=== PATIENT | female | born 1935 | race Caucasian/White ===

== ENCOUNTER 2017-04-10 16:34 | Observation (INO) | payer MEDICARE, BC ==
[2017-04-10] MEDS ORDERED: Ondansetron 4 MG/2 ML SDV IV PRN (17:39)
[2017-04-10] MEDS ORDERED: Promethazine 12.5 MG in Sodium Chloride 0.9% 50 ML IV PRN (17:39)
[2017-04-10] MEDS ORDERED: Bisacodyl 5 MG Tab PO PRN (17:39)
[2017-04-10] MEDS ORDERED: HYDROmorphone 0.5 MG/0.5 ML Syringe IVPUSH PRN (17:39)
[2017-04-10] MEDS ORDERED: Docusate Sodium 100 MG Cap PO PRN (17:39)
[2017-04-10] MEDS ORDERED: LORazepam 2 MG/ML MDV IV PRN (17:39)
[2017-04-10] MEDS ORDERED: Albuterol 0.083% 2.5 MG/3 ML Neb Soln NEB PRN (17:39)
[2017-04-10] MEDS ORDERED: Polyethylene Glycol 3350 Powder 17 GM Packet PO PRN (17:39)
[2017-04-10] MEDS ORDERED: Acetaminophen/HYDROcodone 325-5 MG Tab PO PRN (17:39)
[2017-04-10] MEDS ORDERED: Temazepam 15 MG Cap PO PRN (17:39)
[2017-04-10] MEDS ORDERED: Acetaminophen 325 MG Tab PO PRN (17:39)
[2017-04-10] MEDS ORDERED: hydrALAZINE 20 MG/ML SDV IVPUSH PRN (17:43)
[2017-04-10] MEDS ORDERED: Metoprolol Tartrate 5 MG/5 ML SDV IVPUSH PRN (17:43)
--- NOTE | 2017-04-10 18:32 | PCM.HP ---
H&P History of Present Illness - General Date of Service: 04/10/17 Admit Problem/Dx: Admission Diagnosis/Problem Admission Diagnosis/Problem Anemia Source of Information: Patient, Other History Limitations: Reports: No Limitations - History of Present Illness Initial Comments - Free Text/Narative: This is a healthy 81-year-old elderly white female with no known past medical history who comes in from [facility] for further evaluation of anemia associated with black tarry stool. Patient reports no associated symptoms. She has no GI complaints. No shortness of breath or chest pain. She denies any recent surgery or trauma. Patient was recently diagnosed with bilateral PE. This was felt to be provoked in nature after she took a long trip to [place], [place] to visit her children. Patient was alone on her own when she took the 2-day trip. When she got back in town, she seemed to have been okay but by the following night she started having back pain. On the 24 of March, she went and saw her primary care doctor and at that time she was diagnosed with bilateral PE on CTA. On that same day, patient was put on xarelto for treatment of her lung clot. Patient tolerated the medicine up until 10 days ago, when she started having black tarry stools. Today she went and got seen at the clinic and she was found to have a low hemoglobin level. Her initial workup shows a CBC significant for a Hgb level of 6.8, Hct of 21.51, and MCV of 106. No additional diagnostic data was relayed to me and no other medical documentations forwarded to us from the clinic. Patient is coming in as a direct admit. She will be admitted under observations for further evaluation of her anemia. She is DNR/DNI. - Related Data Allergies/Adverse Reactions: Allergies Allergy/AdvReac Type Severity Reaction Status Date / Time No Known Allergies Allergy Verified 04/10/17 18:48 Past Medical History HEENT History: Reports: Impaired Vision Other HEENT History: wears glasses Cardiovascular History: Reports: Heart Murmur Respiratory History: Reports: Asthma Endocrine/Metabolic History: Reports: None Hematologic History: Reports: Anemia, Anticoagulation Therapy Other Hematologic History: Currently hg 6.8 - Infectious Disease History Infectious Disease History: Reports: Chicken Pox, Measles, Mumps - Past Surgical History HEENT Surgical History: Reports: Adenoidectomy, Cataract Surgery, Tonsillectomy Other HEENT Surgeries/Procedures: cataract surgery bilat, oorphrectomy Cardiovascular Surgical History: Reports: None Respiratory Surgical History: Reports: None GI Surgical History: Reports: Appendectomy, Hernia Repair/Other Other GI Surgeries/Procedures: Current GI Bleed; Umbilical hernia repair Female Surgical History: Reports: Oophorectomy Other Female Surgeries/Procedures: R oophorectomy Dermatological Surgical History: Reports: None Social & Family History - Family History Cardiac: Reports: Hypertension Respiratory: Reports: Asthma, COPD - Tobacco Use Smoking Status *Q: Former Smoker Years of Tobacco use: 30 Used Tobacco, but Quit: Yes Month Tobacco Last Used: 10/1989 Second Hand Smoke Exposure: No - Caffeine Use Caffeine Use: Reports: Coffee Caffeine Use Comment: 3-5 cup of coffee/day - Recreational Drug Use Recreational Drug Use: No H&P Review of Systems - Review of Systems: Review Of Systems: See Below General: Denies: Fever, Chills, Malaise, Weakness, Fatigue, Decreased Appetite, Weight Loss HEENT: Reports: No Symptoms Pulmonary: Denies: Shortness of Breath Cardiovascular: Denies: Chest Pain, Palpitations, Lightheadedness, Syncope Gastrointestinal: Reports: Black Stool, Diarrhea, Flatus. Denies: Abdominal Pain, Anorexia, Bloody Stool, Constipation, Decreased Appetite, Difficulty Swallowing, Distension, Hematemesis, Hematochezia, Mucous in Stool, Nausea, Stool Incontinence, Vomiting, Other Genitourinary: Reports: No Symptoms Musculoskeletal: Reports: No Symptoms Skin: Denies: Cyanosis, Jaundice, Pruritis, Rash, Erythema, Wound Psychiatric: Denies: Depression, Anxiety, Hallucinations, Suicidal Ideation, Homicidal Ideation Neurological: Denies: Confusion, Dizziness, Syncope, Difficulty Walking, Weakness, Gait Disturbance Hematologic/Lymphatic: Denies: Anemia, Easy Bleeding, Easy Bruising Immunologic: Reports: No Symptoms Exam - Exam Exam: See Below - Vital Signs Vital Signs: Last Vital Signs Temp 36.9 C 04/10/17 16:38 Pulse 70 04/10/17 16:38 Resp 16 04/10/17 16:38 BP 112/87 04/10/17 16:38 Pulse Ox 100 04/10/17 16:38 Weight: 66.451 kg - Exam General: Alert, Oriented, Cooperative. No: Mild Distress HEENT: Conjunctiva Clear, EACs Clear, EOMI, Hearing Intact, Mucosa Moist & [place] , Nares Patent, Normal Nasal Septum, Posterior Pharynx Clear, Pupils Reactive, TMs Clear Neck: Supple, Trachea Midline, Full Range of Motion. No: JVD Lungs: Clear to Auscultation, Normal Respiratory Effort Cardiovascular: Regular Rate, Regular Rhythm Abdomen: Normal Bowel Sounds, Soft. No: Peritoneal Signs, Distention, Guarding , Rigidity, Tenderness (Female) Exam: Deferred Rectal (Female) Exam: Deferred Back Exam: Normal Inspection, Decreased Range of Motion Extremities: Normal Inspection, Normal Pulses Peripheral Pulses: 2+: Posterior Tibial (L), Posterior Tibial (R), Dorsalis Pedis (L), Dorsalis Pedis (R) Skin: Warm, Dry, Intact Neuro Extensive - Mental Status: Oriented x3, Normal Cognition, Memory Intact Neuro Extensive - Motor, Sensory, Reflexes: CN II-XII Intact, Normal Gait Psychiatric: Alert, Normal Affect, Normal Mood - Patient Data Result Diagrams: 04/11/17 05:34 04/11/17 05:34 *Q Meaningful Use (ADM) - VTE *Q VTE Criteria *Q: - Stroke *Q Stroke Criteria *Q: - AMI *Q AMI Criteria *Q: Problem List Initiated/Reviewed/Updated: Yes Orders Last 24hrs: Active Orders 24 hr Category Date Time Status Patient Status [ADT] Routine ADT 04/10/17 17:39 Active Antiembolic Devices [RC] 10,21 Care 04/10/17 17:42 Active Height and Weight [RC] DAILY Care 04/10/17 17:39 Active Intake and Output [RC] 04,16 Care 04/10/17 17:41 Active Oxygen Therapy [RC] PRN Care 04/10/17 17:39 Active RT Aerosol Therapy [RC] ASDIRECTED Care 04/10/17 17:42 Active Up ad Karina [RC] ASDIRECTED Care 04/10/17 17:39 Active VTE/DVT Education [RC] PER UNIT ROUTINE Care 04/10/17 17:39 Active Vital Signs [RC] Q4H Care 04/10/17 17:39 Active Consult to Case Management [CONS] Routine Cons 04/10/17 17:43 Active Consult to Data Processor [CONS] Routine Cons 04/10/17 17:43 Active Regular Diet [DIET] Diet 04/10/17 Dinner Active BASIC METABOLIC PANEL,BMP [CHEM] AM Lab 04/11/17 05:11 Ordered BASIC METABOLIC PANEL,BMP [CHEM] AM Lab 04/12/17 05:11 Ordered BASIC METABOLIC PANEL,BMP [CHEM] AM Lab 04/13/17 05:11 Ordered CBC WITH AUTO DIFF [HEME] AM Lab 04/11/17 05:11 Ordered CBC WITH AUTO DIFF [HEME] AM Lab 04/12/17 05:11 Ordered CBC WITH AUTO DIFF [HEME] AM Lab 04/13/17 05:11 Ordered MAGNESIUM [CHEM] AM Lab 04/11/17 05:11 Ordered MAGNESIUM [CHEM] AM Lab 04/12/17 05:11 Ordered MAGNESIUM [CHEM] AM Lab 04/13/17 05:11 Ordered Acetaminophen [Tylenol] Med 04/10/17 17:39 Pending 650 mg PO Q4H PRN Acetaminophen/HYDROcodone [[place] 325-5 MG] Med 04/10/17 17:39 Ordered 1 tab PO Q4H PRN Albuterol [Proventil Neb Soln] Med 04/10/17 17:39 Ordered 2.5 mg NEB Q2H PRN Bisacodyl [Dulcolax] Med 04/10/17 17:39 Ordered 5 mg PO DAILY PRN Docusate Sodium [Colace] Med 04/10/17 17:39 Ordered 100 mg PO BID PRN Docusate Sodium/Sennosides [Senna Plus] Med 04/10/17 17:39 Ordered 1 tab PO BID PRN HYDROmorphone [Dilaudid] Med 04/10/17 17:39 Ordered 0.25 mg IVPUSH Q2H PRN LORazepam [Ativan] Med 04/10/17 17:39 Ordered 0.25 mg IV Q6H PRN Magnesium Rep Pharmacy to Dose [Pharmacy to Dose - Med 04/10/17 17:45 Ordered Magnesium Replacement] 1 dose .XX ASDIRECTED Metoprolol Tartrate [Lopressor] Med 04/10/17 17:43 Ordered 5 mg IVPUSH Q4H PRN Ondansetron [Zofran] Med 04/10/17 17:39 Ordered 4 mg IV Q6H PRN Polyethylene Glycol 3350 [MiraLAX] Med 04/10/17 17:39 Ordered 17 gm PO DAILY PRN Potassium Rep Pharmacy to Dose [Pharmacy to Dose - Med 04/10/17 17:45 Ordered Potassium Replacement] 1 dose .XX ASDIRECTED Promethazine [Phenergan] 12.5 mg Med 04/10/17 17:39 Ordered Sodium Chloride 0.9% [Normal Saline] 50 ml IV Q6H Sodium Chloride 0.9% [Normal Saline] 1,000 ml Med 04/10/17 17:45 Ordered IV ASDIRECTED Temazepam [Restoril] Med 04/10/17 17:39 Ordered 7.5 mg PO BEDTIME PRN hydrALAZINE [Apresoline] Med 04/10/17 17:43 Ordered 20 mg IVPUSH Q4H PRN Sequential Compression Device [OM.PC] Per Unit Routine Oth 04/10/17 17:41 Ordered Resuscitation Status Routine Resus Stat 04/10/17 17:39 Ordered Medication Orders Acetaminophen (Tylenol) 650 mg PO Q4H PRN PRN Reason: Pain (Mild 1-3)/fever Hydrocodone Bitart/Acetaminophen ([place] 325-5 Mg) 1 tab PO Q4H PRN PRN Reason: Pain (moderate 4-6) Albuterol (Proventil Neb Soln) 2.5 mg NEB Q2H PRN PRN Reason: Shortness Of Breath/wheezing Bisacodyl (Dulcolax) 5 mg PO DAILY PRN PRN Reason: Constipation Docusate Sodium (Colace) 100 mg PO BID PRN PRN Reason: Constipation Hydralazine HCl (Apresoline) 20 mg IVPUSH Q4H PRN PRN Reason: Hypertension Hydromorphone HCl (Dilaudid) 0.25 mg IVPUSH Q2H PRN PRN Reason: Pain (severe 7-10) Promethazine HCl 12.5 mg/ (Sodium Chloride) 50.5 mls @ 100 mls/hr IV Q6H PRN PRN Reason: Nausea/Vomiting Sodium Chloride (Normal Saline) 1,000 mls @ 125 mls/hr IV ASDIRECTED MIKE Lorazepam (Ativan) 0.25 mg IV Q6H PRN PRN Reason: Anxiety Magnesium Sulfate (Pharmacy To Dose - Magnesium Replacement) 1 dose .XX ASDIRECTED MIKE Metoprolol Tartrate (Lopressor) 5 mg IVPUSH Q4H PRN PRN Reason: Tachycardia Ondansetron HCl (Zofran) 4 mg IV Q6H PRN PRN Reason: Nausea/Vomiting Polyethylene Glycol (Miralax) 17 gm PO DAILY PRN PRN Reason: Constipation Potassium Chloride (Pharmacy To Dose - Potassium Replacement) 1 dose .XX ASDIRECTED MIKE Senna/Docusate Sodium (Senna Plus) 1 tab PO BID PRN PRN Reason: Constipation Temazepam (Restoril) 7.5 mg PO BEDTIME PRN PRN Reason: Sleep Assessment/Plan Comment:: Assessment/Plan: Acute: Anemia - 2/2 slow GI bleed - Black Tarry Stools - Risk Factors: on Xarelto and +/- NSAIDs use (takes Tylenol and 2 Motrin ( 200 mg) PRN for occasional aches and pain but has not been taking much - No hx/o GI Malignancy/Diverticulosis/Diverticulitis/PUD/Gastritis/ Esophagitis - Has not had an EGD in the past - Last colonoscopy was 4 years with benign finding (performed by Dr. Leslie) - Will type and cross 2 units of PRBCs - Routine H/H GI Bleed - Black tarry stool after she was put on xarelto for Bilateral PE treatment - Hold NOAC for now - Pending blood transfusions - Hold off GS consult - PPIs for possible Upper GI bleed Recent Bilateral PE - Proved: after a prolonged travel to [place], [place] - She was put on xarelto on the of this month - SCDs for DVT prophylaxis - Patient is aware any blood thinners would be contraindicated at this time due to current GI bleed Chronic: HLD? Plan: Admit to OBS Routine AM Labs Regular Diet Hemoccult test if not already done Resume Home Meds if she is on any except for NSAIDs and Blood Thinners Verify maintenance home meds with her local pharmacy SW/CM for d/c planning Additional orders as above Code status: DNR/DNI
[2017-04-10] MEDS: Sodium Chloride 0.9% 1,000 ML IV SCH (19:18)
[2017-04-10] MEDS ORDERED: Multivitamins,Therapeutic Tab PO SCH (21:00)
[2017-04-10] MEDS ORDERED: Sodium Chloride 0.9% 250 ML IV SCH (22:15)
[2017-04-11] MEDS ORDERED: Pantoprazole 40 MG in Sodium Chloride 0.9% 100 ML IV ONE (07:59)
--- NOTE | 2017-04-11 08:02 | PCM.PN ---
- General Info Date of Service: 04/11/17 Admission Dx/Problem (Free Text): Admission Diagnosis/Problem Admission Diagnosis/Problem Anemia Subjective Update: Follow Up Functional Status: Reports: pain controlled, tolerating diet, ambulating, urinating. Denies: new symptoms - Review of Systems General: Denies: Fever, Weakness, Fatigue, Malaise, Chills HEENT: Reports: no symptoms Pulmonary: Denies: shortness of breath Cardiovascular: Denies: Chest Pain, Palpitations, Lightheadedness Gastrointestinal: Reports: Flatus, Other (pebble like dark stools ). Denies: Abdominal pain, Constipation, Decreased appetite, Diarrhea, Difficulty swallowing, Hematochezia, Nausea, Vomiting Genitourinary: Reports: no symptoms Musculoskeletal: Reports: no symptoms Neurological: Reports: No Symptoms Psychiatric: Denies: depression, anxiety, hallucinations Systems Review Comment:: No overnight or acute issues. She is doing relatively. No GI bleed reported. Her Hgb this is 8.6 after receiving 2 units yesterday. She has no new complaints. - Patient Data Vitals - most recent: Last Vital Signs Temp 36.4 C 04/11/17 04:58 Pulse 53 L 04/11/17 04:58 Resp 14 04/11/17 04:58 BP 112/52 L 04/11/17 04:58 Pulse Ox 98 04/11/17 04:58 Weight - most recent: 66.451 kg I&O - last 24 hours: Intake & Output 04/10/17 04/11/17 04/11/17 22:59 06:59 14:59 Intake Total 1640 Output Total 400 Balance 1240 Lab Results last 24 hrs: Laboratory Results - last 24 hr 04/10/17 04/11/17 04/11/17 Range/Units 19:50 05:34 05:34 WBC 4.33 (3.98-10.04) K/mm3 RBC 2.76 L (3.98-5.22) M/mm3 Hgb 8.6 L (11.2-15.7) gm/L Hct 26.9 L (34.1-44.9) % MCV 97.5 H (79.4-94.8) fl MCH 31.2 (25.6-32.2) pg MCHC 32.0 L (32.2-35.5) g/dl RDW Std Deviation 56.7 H (36.4-46.3) fL Plt Count 161 L (182-369) K/mm3 MPV 12.0 (9.4-12.3) fl Neut % (Auto) 41.3 (34.0-71.1) % Lymph % (Auto) 39.7 (19.3-51.7) % [place] % (Auto) 10.9 (4.7-12.5) % Eos % (Auto) 6.9 H (0.7-5.8) Baso % (Auto) 0.7 (0.1-1.2) % Neut # (Auto) 1.79 (1.56-6.13) K/mm3 Lymph # (Auto) 1.72 (1.18-3.74) K/mm3 [place] # (Auto) 0.47 H (0.24-0.36) K/mm3 Eos # (Auto) 0.30 (0.04-0.36) K/mm3 Baso # (Auto) 0.03 (0.01-0.08) K/mm3 Percent Retic 4.20 H (0.50-1.70) % Sodium 142 (136-145) mEq/L Potassium 3.8 (3.5-5.1) mEq/L Chloride 110 H (98-107) mEq/L Carbon Dioxide 24 (21-32) mEq/L Anion Gap 11.8 (5-15) BUN 18 (7-18) mg/dL Creatinine 0.7 (0.55-1.02) mg/dL Est Cr Clr Drug Dosing 47.56 mL/min Estimated GFR (MDRD) > 60 (>60) mL/min BUN/Creatinine Ratio 25.7 H (14-18) Glucose 86 (83-115) mg/dL Calcium 8.3 L (8.5-10.1) mg/dL Magnesium 1.9 (1.8-2.4) mg/dl Vitamin B12 (193-986) pg/ml Folate (8.6-58.9) ng/mL Blood Type A POSITIVE Gel Antibody Screen Negative Crossmatch See Detail 04/11/17 Range/Units 05:34 WBC (3.98-10.04) K/mm3 RBC (3.98-5.22) M/mm3 Hgb (11.2-15.7) gm/L Hct (34.1-44.9) % MCV (79.4-94.8) fl MCH (25.6-32.2) pg MCHC (32.2-35.5) g/dl RDW Std Deviation (36.4-46.3) fL Plt Count (182-369) K/mm3 MPV (9.4-12.3) fl Neut % (Auto) (34.0-71.1) % Lymph % (Auto) (19.3-51.7) % [place] % (Auto) (4.7-12.5) % Eos % (Auto) (0.7-5.8) Baso % (Auto) (0.1-1.2) % Neut # (Auto) (1.56-6.13) K/mm3 Lymph # (Auto) (1.18-3.74) K/mm3 [place] # (Auto) (0.24-0.36) K/mm3 Eos # (Auto) (0.04-0.36) K/mm3 Baso # (Auto) (0.01-0.08) K/mm3 Percent Retic (0.50-1.70) % Sodium (136-145) mEq/L Potassium (3.5-5.1) mEq/L Chloride (98-107) mEq/L Carbon Dioxide (21-32) mEq/L Anion Gap (5-15) BUN (7-18) mg/dL Creatinine (0.55-1.02) mg/dL Est Cr Clr Drug Dosing mL/min Estimated GFR (MDRD) (>60) mL/min BUN/Creatinine Ratio (14-18) Glucose (83-115) mg/dL Calcium (8.5-10.1) mg/dL Magnesium (1.8-2.4) mg/dl Vitamin B12 820 (193-986) pg/ml Folate 33.5 (8.6-58.9) ng/mL Blood Type Gel Antibody Screen Crossmatch Med Orders - Current: Current Medications Acetaminophen (Tylenol) 650 mg PO Q4H PRN PRN Reason: Pain (Mild 1-3)/fever Hydrocodone Bitart/Acetaminophen ([place] 325-5 Mg) 1 tab PO Q4H PRN PRN Reason: Pain (moderate 4-6) Albuterol (Proventil Neb Soln) 2.5 mg NEB Q2H PRN PRN Reason: Shortness Of Breath/wheezing Bisacodyl (Dulcolax) 5 mg PO DAILY PRN PRN Reason: Constipation Docusate Sodium (Colace) 100 mg PO BID PRN PRN Reason: Constipation Hydralazine HCl (Apresoline) 20 mg IVPUSH Q4H PRN PRN Reason: Hypertension Hydromorphone HCl (Dilaudid) 0.25 mg IVPUSH Q2H PRN PRN Reason: Pain (severe 7-10) Promethazine HCl 12.5 mg/ (Sodium Chloride) 50.5 mls @ 100 mls/hr IV Q6H PRN PRN Reason: Nausea/Vomiting Sodium Chloride (Normal Saline) 1,000 mls @ 125 mls/hr IV ASDIRECTED [facility] Last Admin: 04/10/17 19:18 Dose: 125 mls/hr Sodium Chloride (Normal Saline) 250 mls @ 25 mls[facility] Last Admin: 04/10/17 23:10 Dose: 25 mls/hr Magnesium Sulfate (Magnesium Sulfate 2 Gm In Water 50 Ml) 50 mls @ 50 mls/hr IV ONETIME ONE Stop: 04/11/17 09:59 Pantoprazole Sodium 40 mg/ (Sodium Chloride) 100 mls @ 200 mls/hr IV ONETIME ONE Stop: 04/11/17 08:28 Lorazepam (Ativan) 0.25 mg IV Q6H PRN PRN Reason: Anxiety Magnesium Sulfate (Pharmacy To Dose - Magnesium Replacement) 1 dose .XX ASDIRECTED [facility] Metoprolol Tartrate (Lopressor) 5 mg IVPUSH Q4H PRN PRN Reason: Tachycardia Multivitamins (Thera) 1 each PO BEDTIME [facility] Last Admin: 04/10/17 20:39 Dose: 1 each Ondansetron HCl (Zofran) 4 mg IV Q6H PRN PRN Reason: Nausea/Vomiting Pantoprazole Sodium (Protonix) 40 mg PO BIDAC [facility] Polyethylene Glycol (Miralax) 17 gm PO DAILY PRN PRN Reason: Constipation Potassium Chloride (Pharmacy To Dose - Potassium Replacement) 1 dose .XX ASDIRECTED [facility] Senna/Docusate Sodium (Senna Plus) 1 tab PO BID PRN PRN Reason: Constipation Temazepam (Restoril) 7.5 mg PO BEDTIME PRN PRN Reason: Sleep - Exam General: alert, oriented, cooperative, no acute distress HEENT: Pupils equal, Pupils reactive, EOMI, Mucous membr. moist/pink Neck: supple, trachea midline, no JVD, no thyromegaly Lungs: Clear to auscultation, Normal respiratory effort Cardiovascular: Regular Rate, Regular Rhythm Abdomen: bowel sounds present, soft, no tenderness, no distension (Female) Exam: Deferred Back Exam: Normal Inspection, Decreased Range of Motion Extremities: no edema, normal pulses, no tenderness/swelling, no clubbing, no cyanosis, no calf tenderness Peripheral Pulses: 2+: Posterior Tibial (L), Posterior Tibial (R), Dorsalis Pedis (L), Dorsalis Pedis (R) Skin: warm, dry, intact Neurological: no new focal deficit Psy/Mental Status: alert, normal affect, normal mood - Problem List Review Problem List Initiated/Reviewed/Updated: Yes - My Orders Last 24 Hours: My Active Orders 04/10/17 17:39 Patient Status [ADT] Routine Height and Weight [RC] 04 Oxygen Therapy [RC] PRN Up ad Karina [RC] ASDIRECTED VTE/DVT Education [RC] DAILY Vital Signs [RC] Q4HR Acetaminophen [Tylenol] 650 mg PO Q4H PRN Acetaminophen/HYDROcodone [[place] 325-5 MG] 1 tab PO Q4H PRN Albuterol [Proventil Neb Soln] 2.5 mg NEB Q2H PRN Bisacodyl [Dulcolax] 5 mg PO DAILY PRN Docusate Sodium [Colace] 100 mg PO BID PRN Docusate Sodium/Sennosides [Senna Plus] 1 tab PO BID PRN HYDROmorphone [Dilaudid] 0.25 mg IVPUSH Q2H PRN LORazepam [Ativan] 0.25 mg IV Q6H PRN Ondansetron [Zofran] 4 mg IV Q6H PRN Polyethylene Glycol 3350 [MiraLAX] 17 gm PO DAILY PRN Promethazine [Phenergan] 12.5 mg Sodium Chloride 0.9% [Normal Saline] 50 ml IV Q6H Temazepam [Restoril] 7.5 mg PO BEDTIME PRN Resuscitation Status Routine 04/10/17 17:41 Intake and Output [RC] 04,16 Sequential Compression Device [OM.PC] Per Unit Routine 04/10/17 17:42 Antiembolic Devices [RC] DAILY RT Aerosol Therapy [RC] ASDIRECTED 04/10/17 17:43 Consult to Case Management [CONS] Routine Consult to Field Trainer [CONS] Routine Metoprolol Tartrate [Lopressor] 5 mg IVPUSH Q4H PRN hydrALAZINE [Apresoline] 20 mg IVPUSH Q4H PRN 04/10/17 17:45 Magnesium Rep Pharmacy to Dose [Pharmacy to Dose - Magnesium Replacement] 1 dose .XX ASDIRECTED Potassium Rep Pharmacy to Dose [Pharmacy to Dose - Potassium Replacement] 1 dose .XX ASDIRECTED Sodium Chloride 0.9% [Normal Saline] 1,000 ml IV ASDIRECTED 04/10/17 19:03 Transfuse RBC [Transfuse Red Blood Cells] [COMM] Stat 04/10/17 21:00 Multivitamins,Therapeutic [Thera] 1 each PO BEDTIME 04/10/17 22:15 Sodium Chloride 0.9% [Normal Saline] 250 ml IV ASDIRECTED 04/10/17 Dinner Regular Diet [DIET] 04/11/17 07:56 Hemoccult [OCCULT BLOOD DIAGNOSTIC] [OP] Stat 04/11/17 07:59 Pantoprazole [ProTONIX IV] 40 mg Sodium Chloride 0.9% [Normal Saline] 100 ml IV ONETIME 04/11/17 09:00 Magnesium Sulfate/Water [Magnesium Sulfate 2 GM in Water 50 ML] 50 ml IV ONETIME 04/11/17 16:00 Pantoprazole [ProTONIX] 40 mg PO BIDAC 04/12/17 05:11 BASIC METABOLIC PANEL,BMP [CHEM] AM CBC WITH AUTO DIFF [HEME] AM MAGNESIUM [CHEM] AM 04/13/17 05:11 BASIC METABOLIC PANEL,BMP [CHEM] AM CBC WITH AUTO DIFF [HEME] AM MAGNESIUM [CHEM] AM - Plan Plan:: Assessment/Plan: Acute: Anemia - 2/2 slow GI bleed - Black Tarry Stools - Risk Factors: on Xarelto and +/- NSAIDs use (takes Tylenol and 2 Motrin ( 200 mg) PRN for occasional aches and pain but has not been taking much - No hx/o GI Malignancy/Diverticulosis/Diverticulitis/PUD/Gastritis/ Esophagitis - Has not had an EGD in the past - Last colonoscopy was 4 years with benign finding (performed by Dr. Leslie) - S/p 2 units of PRBC transfusion - Hgb 6.8--> now 8.6 - Routine H/H at 1800 - Iron infusion x 1 today GI Bleed - Black tarry stool after she was put on xarelto for Bilateral PE treatment - Hold NOAC for now - Hold off GS consult - Continue PPIs for possible Upper GI bleed Recent Bilateral PE - Proved: after a prolonged travel to [place], [place] - She was put on xarelto on the of this month - SCDs for DVT prophylaxis - Patient is aware any blood thinners would be contraindicated at this time due to current GI bleed Chronic: HLD Plan: She is clinically stable Routine AM Labs Simvastatin 40 mg po QHS SW/CM for d/c planning Additional orders as above DVT PPx: SCDs due to GI bleed Code status: DNR/DNI Possible d/c in am If patient remains stable, she will be discharged in am. The plan is to set up an appointment to see GS and PCP next week preferably by Thursday or Thursday. She will restart her xarelto night if she gets an appointment Thursday.
[2017-04-11] MEDS ORDERED: Magnesium Sulfate/Water 50 ML IV ONE (09:00)
[2017-04-11] MEDS: Sodium Chloride 0.9% 1,000 ML IV SCH ×2 (09:32→17:50)
[2017-04-11] MEDS ORDERED: Pantoprazole 40 MG Vial IV ONE (10:15)
[2017-04-11] MEDS ORDERED: SODIUM FERRIC GLUCONAT IV ONE (13:00)
[2017-04-11] MEDS ORDERED: SUCROSE IV ONE (13:00)
[2017-04-11] MEDS ORDERED: SODIUM CHLORIDE 0.9% IV ONE (13:00)
[2017-04-11] MEDS: Pantoprazole 40 MG Tab.CR PO SCH (17:00)
[2017-04-11] MEDS ORDERED: Simvastatin 40 MG Tab PO SCH (21:00)
[2017-04-11] MEDS: ATORVASTATIN 40 MG PO SCH (21:39)
[2017-04-12] MEDS: Pantoprazole 40 MG Tab.CR PO SCH ×2 (07:11→16:40)
[2017-04-12] MEDS ORDERED: Heparin Sodium/D5W 25,000 UNITS/500 ML BAG IV SCH ×3 (10:30→18:31)
--- NOTE | 2017-04-12 11:00 | PCM.PN ---
- General Info Date of Service: 04/12/17 Admission Dx/Problem (Free Text): Admission Diagnosis/Problem Admission Diagnosis/Problem Anemia Subjective Update: Follow Up Functional Status: Reports: pain controlled, tolerating diet, ambulating, urinating. Denies: new symptoms - Review of Systems General: Denies: Fever, Weakness, Fatigue, Malaise, Chills HEENT: Reports: no symptoms Pulmonary: Denies: shortness of breath Cardiovascular: Denies: Chest Pain, Palpitations, Dyspnea on Exertion, Edema, Lightheadedness Gastrointestinal: Reports: Flatus, Other (black stools). Denies: Abdominal pain , Constipation, Decreased appetite, Diarrhea, Difficulty swallowing, Hematochezia, Nausea, Vomiting Genitourinary: Reports: no symptoms Musculoskeletal: Reports: no symptoms Skin: Reports: no symptoms Neurological: Denies: Confusion, Dizziness, Difficulty Walking, Weakness, Gait Disturbance Psychiatric: Denies: depression, anxiety, agitation, hallucinations Systems Review Comment:: No overnight or acute issues. She received iron infusion yesterday w/o complications. She had black tarry stools this morning. Her Hgb is slight low at 8.1 this am. - Patient Data Vitals - most recent: Last Vital Signs Temp 36.6 C 04/12/17 03:59 Pulse 52 L 04/12/17 03:59 Resp 12 04/12/17 03:59 BP 110/49 L 04/12/17 03:59 Pulse Ox 91 L 04/12/17 03:59 Weight - most recent: 67.086 kg I&O - last 24 hours: Intake & Output 04/11/17 04/12/17 04/12/17 22:59 06:59 14:59 Intake Total 2521 1782 Output Total 500 1400 Balance 2020 382 Lab Results last 24 hrs: Laboratory Results - last 24 hr 04/11/17 04/12/17 04/12/17 Range/Units 18:15 05:49 05:49 WBC 4.77 (3.98-10.04) K/mm3 RBC 2.59 L (3.98-5.22) M/mm3 Hgb 8.6 L 8.1 L (11.2-15.7) gm/L Hct 27.0 L 25.7 L (34.1-44.9) % MCV 99.2 H (79.4-94.8) fl MCH 31.3 (25.6-32.2) pg MCHC 31.5 L (32.2-35.5) g/dl RDW Std Deviation 60.7 H (36.4-46.3) fL Plt Count 181 L (182-369) K/mm3 MPV 12.2 (9.4-12.3) fl Neut % (Auto) 55.2 (34.0-71.1) % Lymph % (Auto) 26.6 (19.3-51.7) % [place] % (Auto) 10.5 (4.7-12.5) % Eos % (Auto) 7.1 H (0.7-5.8) Baso % (Auto) 0.6 (0.1-1.2) % Neut # (Auto) 2.63 (1.56-6.13) K/mm3 Lymph # (Auto) 1.27 (1.18-3.74) K/mm3 [place] # (Auto) 0.50 H (0.24-0.36) K/mm3 Eos # (Auto) 0.34 (0.04-0.36) K/mm3 Baso # (Auto) 0.03 (0.01-0.08) K/mm3 Sodium 142 (136-145) mEq/L Potassium 3.9 (3.5-5.1) mEq/L Chloride 113 H (98-107) mEq/L Carbon Dioxide 22 (21-32) mEq/L Anion Gap 10.9 (5-15) BUN 14 (7-18) mg/dL Creatinine 0.8 (0.55-1.02) mg/dL Est Cr Clr Drug Dosing 41.62 mL/min Estimated GFR (MDRD) > 60 (>60) mL/min BUN/Creatinine Ratio 17.5 (14-18) Glucose 95 (83-115) mg/dL Calcium 7.6 L (8.5-10.1) mg/dL Magnesium 2.1 (1.8-2.4) mg/dl Christopher Results last 24 hrs: Microbiology 04/11/17 09:05 Stool Occult Blood (CHRISTOPHER) - Final Stool / Feces POSITIVE OCCULT BLOOD Med Orders - Current: Current Medications Acetaminophen (Tylenol) 650 mg PO Q4H PRN PRN Reason: Pain (Mild 1-3)/fever Hydrocodone Bitart/Acetaminophen (Mora 325-5 Mg) 1 tab PO Q4H PRN PRN Reason: Pain (moderate 4-6) Albuterol (Proventil Neb Soln) 2.5 mg NEB Q2H PRN PRN Reason: Shortness Of Breath/wheezing Bisacodyl (Dulcolax) 5 mg PO DAILY PRN PRN Reason: Constipation Docusate Sodium (Colace) 100 mg PO BID PRN PRN Reason: Constipation Hydralazine HCl (Apresoline) 20 mg IVPUSH Q4H PRN PRN Reason: Hypertension Hydromorphone HCl (Dilaudid) 0.25 mg IVPUSH Q2H PRN PRN Reason: Pain (severe 7-10) Promethazine HCl 12.5 mg/ (Sodium Chloride) 50.5 mls @ 100 mls/hr IV Q6H PRN PRN Reason: Nausea/Vomiting Heparin Sodium/Dextrose (Heparin 25,000 Units In D5w 500 Ml) 25,000 units in 500 mls @ 24.12 mls/hr IV TITRATE MIKE; 18 UNITS/KG/HR PRN Reason: Protocol Lorazepam (Ativan) 0.25 mg IV Q6H PRN PRN Reason: Anxiety Magnesium Sulfate (Pharmacy To Dose - Magnesium Replacement) 1 dose .XX ASDIRECTED [facility] Metoprolol Tartrate (Lopressor) 5 mg IVPUSH Q4H PRN PRN Reason: Tachycardia Non-Formulary Medication (Ubidecarenone) 100 mg PO BEDTIME [facility] Atorvastatin 40mg (Tab *Pt Own Med*) 1 each PO BEDTIME [facility] Last Admin: 04/11/17 21:39 Dose: Not Given Ondansetron HCl (Zofran) 4 mg IV Q6H PRN PRN Reason: Nausea/Vomiting Pantoprazole Sodium (Protonix) 40 mg PO BIDAC [facility] Last Admin: 04/12/17 07:11 Dose: 40 mg Polyethylene Glycol (Miralax) 17 gm PO DAILY PRN PRN Reason: Constipation Potassium Chloride (Pharmacy To Dose - Potassium Replacement) 1 dose .XX ASDIRECTED [facility] Senna/Docusate Sodium (Senna Plus) 1 tab PO BID PRN PRN Reason: Constipation Temazepam (Restoril) 7.5 mg PO BEDTIME PRN PRN Reason: Sleep Discontinued Medications Sodium Chloride (Normal Saline) 1,000 mls @ 125 mls/hr IV ASDIRECTED [facility] Last Admin: 04/11/17 17:50 Dose: 125 mls/hr Sodium Chloride (Normal Saline) 250 mls @ 25 mls/hr IV ASDIRECTED [facility] Last Admin: 04/10/17 23:10 Dose: 25 mls/hr Magnesium Sulfate (Magnesium Sulfate 2 Gm In Water 50 Ml) 50 mls @ 50 mls/hr IV ONETIME ONE Stop: 04/11/17 09:59 Last Admin: 04/11/17 09:32 Dose: 50 mls/hr Pantoprazole Sodium 40 mg/ (Sodium Chloride) 100 mls @ 200 mls/hr IV ONETIME ONE Stop: 04/11/17 08:28 Last Admin: 04/11/17 10:10 Dose: Not Given Sodium Ferric Gluconat/Sucrose (187.5 mg/ Sodium Chloride) 115 mls @ 55 mls/hr IV ONETIME ONE Stop: 04/11/17 15:05 Last Admin: 04/11/17 13:12 Dose: 55 mls/hr Multivitamins (Thera) 1 each PO BEDTIME [facility] Last Admin: 04/10/17 20:39 Dose: 1 each Pantoprazole Sodium (Protonix Iv) 40 mg IV ONETIME ONE Stop: 04/11/17 10:16 Last Admin: 04/11/17 10:29 Dose: 40 mg Simvastatin (Zocor) 40 mg PO BEDTIME [facility] Last Admin: 04/11/17 21:29 Dose: 40 mg - Exam General: alert, oriented, cooperative, no acute distress HEENT: Pupils equal, Pupils reactive, EOMI, Mucous membr. moist/pink Neck: supple, trachea midline, no JVD Lungs: Clear to auscultation, Normal respiratory effort Cardiovascular: Regular Rate, Regular Rhythm Abdomen: bowel sounds present, soft, no tenderness, no distension (Female) Exam: Deferred Back Exam: Normal Inspection, Decreased Range of Motion Extremities: no edema, normal pulses, no tenderness/swelling, no clubbing, no cyanosis, no calf tenderness, calf tenderness Peripheral Pulses: 2+: Posterior Tibial (L), Posterior Tibial (R), Dorsalis Pedis (L), Dorsalis Pedis (R) Skin: warm, dry, intact Neurological: no new focal deficit Psy/Mental Status: alert, normal affect, normal mood - Problem List Review Problem List Initiated/Reviewed/Updated: Yes - My Orders Last 24 Hours: My Active Orders 04/11/17 16:00 Pantoprazole [ProTONIX] 40 mg PO BIDAC 04/11/17 21:00 Ubidecarenone 100 mg PO BEDTIME 04/11/17 21:45 Non-Formulary Medication [NF Drug] 1 each PO BEDTIME 04/12/17 10:21 Consult to Physician [CONS] Routine 04/12/17 10:23 Notify Provider Consults [RC] ASDIRECTED 04/12/17 10:30 Heparin Sodium/D5W [Heparin 25,000 Units in D5W 500 ML] 25,000 units in 500 ml IV TITRATE 04/12/17 10:45 PTT,PARTIAL THROMBOPLSTIN TIME [COAG] Q6H 04/12/17 16:29 PTT,PARTIAL THROMBOPLSTIN TIME [COAG] Q6H 04/12/17 22:29 PTT,PARTIAL THROMBOPLSTIN TIME [COAG] Q6H 04/13/17 04:29 PTT,PARTIAL THROMBOPLSTIN TIME [COAG] Q6H 04/13/17 05:11 BASIC METABOLIC PANEL,BMP [CHEM] AM CBC WITH AUTO DIFF [HEME] AM MAGNESIUM [CHEM] AM - Plan Plan:: Assessment/Plan: Acute: Anemia - 2/2 slow GI bleed - Black Tarry Stools - Risk Factors: on Xarelto and +/- NSAIDs use (takes Tylenol and 2 Motrin ( 200 mg) PRN for occasional aches and pain but has not been taking much - No hx/o GI Malignancy/Diverticulosis/Diverticulitis/PUD/Gastritis/ Esophagitis - Has not had an EGD in the past - Last colonoscopy was 4 years with benign finding (performed by Dr. Leslie) - S/p 2 units of PRBC transfusion - Hgb 6.8--> 8.6 --> 8.1 - Routine H/H - S/p Iron infusion x 1 GI Bleed - Black tarry stool after she was put on xarelto for Bilateral PE treatment - Hold NOAC for now - consult w/ Dr. Leslie: She will come and see patient tomorrow and plan on scoping her. She wants her on heparin drip for PE protocol - Continue PPIs for Upper GI bleed Recent Bilateral PE - Proved: after a prolonged travel to [place], [place] - She was put on xarelto on the of this month - SCDs for DVT prophylaxis - Per patient, she was negative for blood clot on her leg when they tested her - Will to reach [place], see if they can send us copies of her medical records Chronic: HLD Plan: She is clinically stable Routine AM Labs SW/CM for d/c planning Additional orders as above DVT PPx: SCDs/Heparin drip Monitor H/H Code status: DNR/DNI Able to speak with Dr. Leslie. She was to scope her tomorrow but would like heparin drip to start now and be discontinued tomorrow at 6 AM. Relayed info to patient and her daughter Mell from [place], [place].
--- NOTE | 2017-04-12 14:49 | PCM.CONS ---
H&P History of Present Illness - General Date of Service: 04/13/17 Admit Problem/Dx: Admission Diagnosis/Problem Admission Diagnosis/Problem Anemia - History of Present Illness Initial Comments - Free Text/Narative: The patient is a 81-year-old female who I was asked to see in consultation by Dr. Hubbard for suspected upper GI bleeding. The patient has had guaiac positive stools and has reported melena. She was admitted for further workup of this as she was sent over from [facility] with hemoglobin of 6 after she had reported black stools at home. Her hemoglobin had been around 12.3 just 2 weeks prior. The patient has recently been started on Xarelto for pulmonary emboli which were spontaneously occurring after a recent road trip to [place] and back to see her children. She had no other risks factors for PE. She had no evidence of DVT. Overall she states that she is feeling quite well. She denies any abdominal pain, hematemesis, nausea or vomiting, hematochezia. She denies taking iron or anything else that could darken her stools. Denies chest pain, headache, or shortness of breath. NO presyncope. She has received 1 dose of venofer at [facility] and she has received a 2 unit PRBC transfusion. Her hemoglobin has stabilized at approximately 8.5. The patient did have a recent colonoscopy by me about 3-1/2 years ago. One diminutive tubular adenoma was removed. She denies any heartburn. After discussion with Dr. Hubbard yesterday, she was placed on a heparin drip and no longer on Xarelto. Her heparin gtt was stopped at 0600 this AM in preparation for endoscopy this afternoon. Her primary care provider is JORGE ALBERTO Banks. - Related Data Allergies/Adverse Reactions: Allergies Allergy/AdvReac Type Severity Reaction Status Date / Time No Known Allergies Allergy Verified 04/10/17 18:48 Home Medications: Home Meds Ubidecarenone [Co Q-10] 100 mg PO BEDTIME 04/11/17 [History] atorvaSTATin [Lipitor] 40 mg PO BEDTIME 04/11/17 [History] Omeprazole Magnesium 20 mg PO BID #60 capsule. 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 - Past Surgical History HEENT Surgical History: Reports: Adenoidectomy, Cataract Surgery, Tonsillectomy Other HEENT Surgeries/Procedures: cataract surgery bilat, oorphrectomy Cardiovascular Surgical History: Reports: None Respiratory Surgical History: Reports: None GI Surgical History: Reports: Appendectomy, Hernia Repair/Other Other GI Surgeries/Procedures: Current GI Bleed; Umbilical hernia repair Female Surgical History: Reports: Oophorectomy Other Female Surgeries/Procedures: R oophorectomy Dermatological Surgical History: Reports: None Social & Family History - Family History Cardiac: Reports: Hypertension Respiratory: Reports: Asthma, COPD - Tobacco Use Smoking Status *Q: Former Smoker Years of Tobacco use: 30 Used Tobacco, but Quit: Yes Month Tobacco Last Used: 10/1989 Second Hand Smoke Exposure: No - Caffeine Use Caffeine Use: Reports: Coffee Caffeine Use Comment: 3-5 cup of coffee/day - Recreational Drug Use Recreational Drug Use: No H&P Review of Systems - Review of Systems: Review Of Systems: See Below General: Reports: No Symptoms HEENT: Reports: Glasses Pulmonary: Denies: Shortness of Breath Cardiovascular: Reports: No Symptoms. Denies: Chest Pain, Dyspnea on Exertion, Lightheadedness, Syncope Gastrointestinal: Reports: Black Stool Genitourinary: Reports: No Symptoms Musculoskeletal: Reports: No Symptoms Skin: Reports: No Symptoms Psychiatric: Reports: No Symptoms Neurological: Reports: No Symptoms Hematologic/Lymphatic: Reports: Anemia Immunologic: Reports: No Symptoms Exam - Exam Exam: See Below - Vital Signs Vital Signs: Last Vital Signs Temp 97.9 F 04/12/17 03:59 Pulse 52 L 04/12/17 03:59 Resp 12 04/12/17 03:59 BP 110/49 L 04/12/17 03:59 Pulse Ox 91 L 04/12/17 03:59 Weight: 147 lb 14.4 oz - Exam Quality Assessment: No: Supplemental Oxygen General: Alert, Oriented, Cooperative HEENT: Conjunctiva Clear. No: Scleral Icterus Neck: Supple, Trachea Midline Lungs: Clear to Auscultation, Normal Respiratory Effort Cardiovascular: Regular Rate, Regular Rhythm Abdomen: Soft. No: Peritoneal Signs, Distention, Guarding, Rigidity, Rebound Rectal (Female) Exam: Deferred Extremities: Normal Inspection. No: Clubbing, Cyanosis, Edema Skin: Warm, Dry, Intact Neurological: Cranial Nerves Intact, Normal Speech. No: Focal Deficit Neuro Extensive - Mental Status: Alert, Oriented x3, Normal Mood/Affect, Normal Cognition, Memory Intact Psychiatric: Alert, Normal Affect, Normal Mood - Patient Data Lab Results Last 24 hrs: Laboratory Results - last 24 hr 04/11/17 04/12/17 04/12/17 Range/Units 18:15 05:49 05:49 WBC 4.77 (3.98-10.04) K/mm3 RBC 2.59 L (3.98-5.22) M/mm3 Hgb 8.6 L 8.1 L (11.2-15.7) gm/L Hct 27.0 L 25.7 L (34.1-44.9) % MCV 99.2 H (79.4-94.8) fl MCH 31.3 (25.6-32.2) pg MCHC 31.5 L (32.2-35.5) g/dl RDW Std Deviation 60.7 H (36.4-46.3) fL Plt Count 181 L (182-369) K/mm3 MPV 12.2 (9.4-12.3) fl Neut % (Auto) 55.2 (34.0-71.1) % Lymph % (Auto) 26.6 (19.3-51.7) % [place] % (Auto) 10.5 (4.7-12.5) % Eos % (Auto) 7.1 H (0.7-5.8) Baso % (Auto) 0.6 (0.1-1.2) % Neut # (Auto) 2.63 (1.56-6.13) K/mm3 Lymph # (Auto) 1.27 (1.18-3.74) K/mm3 [place] # (Auto) 0.50 H (0.24-0.36) K/mm3 Eos # (Auto) 0.34 (0.04-0.36) K/mm3 Baso # (Auto) 0.03 (0.01-0.08) K/mm3 APTT (22-36) SECONDS Sodium 142 (136-145) mEq/L Potassium 3.9 (3.5-5.1) mEq/L Chloride 113 H (98-107) mEq/L Carbon Dioxide 22 (21-32) mEq/L Anion Gap 10.9 (5-15) BUN 14 (7-18) mg/dL Creatinine 0.8 (0.55-1.02) mg/dL Est Cr Clr Drug Dosing 41.62 mL/min Estimated GFR (MDRD) > 60 (>60) mL/min BUN/Creatinine Ratio 17.5 (14-18) Glucose 95 (83-115) mg/dL Calcium 7.6 L (8.5-10.1) mg/dL Magnesium 2.1 (1.8-2.4) mg/dl 04/12/17 Range/Units 10:45 WBC (3.98-10.04) K/mm3 RBC (3.98-5.22) M/mm3 Hgb (11.2-15.7) gm/L Hct (34.1-44.9) % MCV (79.4-94.8) fl MCH (25.6-32.2) pg MCHC (32.2-35.5) g/dl RDW Std Deviation (36.4-46.3) fL Plt Count (182-369) K/mm3 MPV (9.4-12.3) fl Neut % (Auto) (34.0-71.1) % Lymph % (Auto) (19.3-51.7) % [place] % (Auto) (4.7-12.5) % Eos % (Auto) (0.7-5.8) Baso % (Auto) (0.1-1.2) % Neut # (Auto) (1.56-6.13) K/mm3 Lymph # (Auto) (1.18-3.74) K/mm3 [place] # (Auto) (0.24-0.36) K/mm3 Eos # (Auto) (0.04-0.36) K/mm3 Baso # (Auto) (0.01-0.08) K/mm3 APTT 26 (22-36) SECONDS Sodium (136-145) mEq/L Potassium (3.5-5.1) mEq/L Chloride (98-107) mEq/L Carbon Dioxide (21-32) mEq/L Anion Gap (5-15) BUN (7-18) mg/dL Creatinine (0.55-1.02) mg/dL Est Cr Clr Drug Dosing mL/min Estimated GFR (MDRD) (>60) mL/min BUN/Creatinine Ratio (14-18) Glucose (83-115) mg/dL Calcium (8.5-10.1) mg/dL Magnesium (1.8-2.4) mg/dl Result Diagrams: 04/14/17 07:18 04/13/17 04:49 Maryann Results Last 24 hrs: Microbiology 04/11/17 09:05 Stool Occult Blood (MARYANN) - Final Stool / Feces POSITIVE OCCULT BLOOD Consult PN Assessment/Plan Procedures: Procedures DXA BONE DENSITY AXIAL (08/10/15) (1) Gastrointestinal hemorrhage with melena SNOMED Code(s): 17606258, 005859334 Code(s): K92.1 - MELENA Priority: High (2) Anemia associated with acute blood loss SNOMED Code(s): 498142884 Code(s): D62 - ACUTE POSTHEMORRHAGIC ANEMIA Priority: High (3) Hx of pulmonary embolus SNOMED Code(s): 247591003 Code(s): Z86.711 - PERSONAL HISTORY OF PULMONARY EMBOLISM Priority: High Problem List Initiated/Reviewed/Updated: Yes Plan: 81 yo woman with melena, recently started on Xarelto Due to recent colonoscopy that was fairly unremarkable, will plan for diagnostic EGD only. Risks and benefits reviewed with the patient and she found these acceptable and agreed to proceed.
[2017-04-12] MEDS: ATORVASTATIN 40 MG PO SCH (20:55)
[2017-04-13] MEDS ORDERED: Heparin Sodium/D5W 25,000 UNITS/500 ML BAG IV SCH (01:15)
[2017-04-13] MEDS: Pantoprazole 40 MG Tab.CR PO SCH ×2 (05:40→17:44)
[2017-04-13] MEDS ORDERED: Temazepam 7.5 MG Cap PO PRN (07:52)
[2017-04-13] MEDS ORDERED: ATORVASTATIN 40 MG PO SCH (08:22)
[2017-04-13] MEDS ORDERED: Potassium Chloride 20 MEQ Tab.ER PO SCH (09:00)
[2017-04-13] MEDS ORDERED: Magnesium Oxide 400 MG Tab PO SCH (09:00)
--- NOTE | 2017-04-13 09:01 | PCM.PN ---
- General Info Date of Service: 04/13/17 Admission Dx/Problem (Free Text): Admission Diagnosis/Problem Admission Diagnosis/Problem Anemia Patient is seen this morning on team rounds. Doing well, slept well. Had small BM this am that appeared "less tarry". No abd pain/nausea. VSS, hgb stable at 8.4 this am. Functional Status: Reports: pain controlled, ambulating, urinating. Denies: tolerating diet (NPO for planned EGD today with Dr. Leslie) - Review of Systems General: Reports: Weakness (generalized; improved). Denies: Fever Pulmonary: Reports: no symptoms Cardiovascular: Reports: No Symptoms Gastrointestinal: Reports: No symptoms. Denies: Abdominal pain Genitourinary: Reports: no symptoms Psychiatric: Reports: no symptoms - Patient Data Vitals - most recent: Last Vital Signs Temp 98.6 F 04/13/17 08:15 Pulse 50 L 04/13/17 08:15 Resp 14 04/13/17 08:15 BP 124/48 L 04/13/17 08:15 Pulse Ox 97 04/13/17 08:15 Weight - most recent: 149 lb 4.8 oz I&O - last 24 hours: Intake & Output 04/12/17 04/13/17 04/13/17 22:59 06:59 14:59 Intake Total 1162 794 Output Total 2400 2200 Balance -1238 -1406 Lab Results last 24 hrs: Laboratory Results - last 24 hr 04/12/17 04/12/17 04/12/17 Range/Units 10:45 16:30 18:10 WBC (3.98-10.04) K/mm3 RBC (3.98-5.22) M/mm3 Hgb 8.8 L (11.2-15.7) gm/L Hct 28.1 L (34.1-44.9) % MCV (79.4-94.8) fl MCH (25.6-32.2) pg MCHC (32.2-35.5) g/dl RDW Std Deviation (36.4-46.3) fL Plt Count (182-369) K/mm3 MPV (9.4-12.3) fl Neut % (Auto) (34.0-71.1) % Lymph % (Auto) (19.3-51.7) % [place] % (Auto) (4.7-12.5) % Eos % (Auto) (0.7-5.8) Baso % (Auto) (0.1-1.2) % Neut # (Auto) (1.56-6.13) K/mm3 Lymph # (Auto) (1.18-3.74) K/mm3 [place] # (Auto) (0.24-0.36) K/mm3 Eos # (Auto) (0.04-0.36) K/mm3 Baso # (Auto) (0.01-0.08) K/mm3 APTT 26 > 153 H* (22-36) SECONDS Sodium (136-145) mEq/L Potassium (3.5-5.1) mEq/L Chloride (98-107) mEq/L Carbon Dioxide (21-32) mEq/L Anion Gap (5-15) BUN (7-18) mg/dL Creatinine (0.55-1.02) mg/dL Est Cr Clr Drug Dosing mL/min Estimated GFR (MDRD) (>60) mL/min BUN/Creatinine Ratio (14-18) Glucose (83-115) mg/dL Calcium (8.5-10.1) mg/dL Magnesium (1.8-2.4) mg/dl 04/12/17 04/13/17 04/13/17 Range/Units 22:47 04:49 04:49 WBC 5.16 (3.98-10.04) K/mm3 RBC 2.62 L (3.98-5.22) M/mm3 Hgb 8.4 L (11.2-15.7) gm/L Hct 26.5 L (34.1-44.9) % MCV 101.1 H (79.4-94.8) fl MCH 32.1 (25.6-32.2) pg MCHC 31.7 L (32.2-35.5) g/dl RDW Std Deviation 60.0 H (36.4-46.3) fL Plt Count 178 L (182-369) K/mm3 MPV 12.0 (9.4-12.3) fl Neut % (Auto) 44.5 (34.0-71.1) % Lymph % (Auto) 34.7 (19.3-51.7) % [place] % (Auto) 12.6 H (4.7-12.5) % Eos % (Auto) 7.6 H (0.7-5.8) Baso % (Auto) 0.6 (0.1-1.2) % Neut # (Auto) 2.30 (1.56-6.13) K/mm3 Lymph # (Auto) 1.79 (1.18-3.74) K/mm3 [place] # (Auto) 0.65 H (0.24-0.36) K/mm3 Eos # (Auto) 0.39 H (0.04-0.36) K/mm3 Baso # (Auto) 0.03 (0.01-0.08) K/mm3 APTT > 153 H* (22-36) SECONDS Sodium 142 (136-145) mEq/L Potassium 3.6 (3.5-5.1) mEq/L Chloride 111 H (98-107) mEq/L Carbon Dioxide 23 (21-32) mEq/L Anion Gap 11.6 (5-15) BUN 16 (7-18) mg/dL Creatinine 0.9 (0.55-1.02) mg/dL Est Cr Clr Drug Dosing 36.99 mL/min Estimated GFR (MDRD) > 60 (>60) mL/min BUN/Creatinine Ratio 17.8 (14-18) Glucose 104 (83-115) mg/dL Calcium 7.9 L (8.5-10.1) mg/dL Magnesium 1.9 (1.8-2.4) mg/dl 04/13/17 Range/Units 04:49 WBC (3.98-10.04) K/mm3 RBC (3.98-5.22) M/mm3 Hgb (11.2-15.7) gm/L Hct (34.1-44.9) % MCV (79.4-94.8) fl MCH (25.6-32.2) pg MCHC (32.2-35.5) g/dl RDW Std Deviation (36.4-46.3) fL Plt Count (182-369) K/mm3 MPV (9.4-12.3) fl Neut % (Auto) (34.0-71.1) % Lymph % (Auto) (19.3-51.7) % [place] % (Auto) (4.7-12.5) % Eos % (Auto) (0.7-5.8) Baso % (Auto) (0.1-1.2) % Neut # (Auto) (1.56-6.13) K/mm3 Lymph # (Auto) (1.18-3.74) K/mm3 [place] # (Auto) (0.24-0.36) K/mm3 Eos # (Auto) (0.04-0.36) K/mm3 Baso # (Auto) (0.01-0.08) K/mm3 APTT > 153 H* (22-36) SECONDS Sodium (136-145) mEq/L Potassium (3.5-5.1) mEq/L Chloride (98-107) mEq/L Carbon Dioxide (21-32) mEq/L Anion Gap (5-15) BUN (7-18) mg/dL Creatinine (0.55-1.02) mg/dL Est Cr Clr Drug Dosing mL/min Estimated GFR (MDRD) (>60) mL/min BUN/Creatinine Ratio (14-18) Glucose (83-115) mg/dL Calcium (8.5-10.1) mg/dL Magnesium (1.8-2.4) mg/dl Med Orders - Current: Current Medications Acetaminophen (Tylenol) 650 mg PO Q4H PRN PRN Reason: Pain (Mild 1-3)/fever Hydrocodone Bitart/Acetaminophen ([place] 325-5 Mg) 1 tab PO Q4H PRN PRN Reason: Pain (moderate 4-6) Albuterol (Proventil Neb Soln) 2.5 mg NEB Q2H PRN PRN Reason: Shortness Of Breath/wheezing Bisacodyl (Dulcolax) 5 mg PO DAILY PRN PRN Reason: Constipation Docusate Sodium (Colace) 100 mg PO BID PRN PRN Reason: Constipation Hydralazine HCl (Apresoline) 20 mg IVPUSH Q4H PRN PRN Reason: Hypertension Hydromorphone HCl (Dilaudid) 0.25 mg IVPUSH Q2H PRN PRN Reason: Pain (severe 7-10) Promethazine HCl 12.5 mg/ (Sodium Chloride) 50.5 mls @ 100 mls/hr IV Q6H PRN PRN Reason: Nausea/Vomiting Lorazepam (Ativan) 0.25 mg IV Q6H PRN PRN Reason: Anxiety Magnesium Oxide (Magnesium Oxide) 400 mg PO TID [facility] Stop: 04/13/17 21:01 Magnesium Sulfate (Pharmacy To Dose - Magnesium Replacement) 1 dose .XX ASDIRECTED [facility] Metoprolol Tartrate (Lopressor) 5 mg IVPUSH Q4H PRN PRN Reason: Tachycardia Ondansetron HCl (Zofran) 4 mg IV Q6H PRN PRN Reason: Nausea/Vomiting Pantoprazole Sodium (Protonix) 40 mg PO BIDAC [facility] Last Admin: 04/13/17 05:40 Dose: 40 mg Ubidecarenone 100 Mg 0 each PO BEDTIME [facility] Last Admin: 04/12/17 20:56 Dose: Not Given Atorvastatin 40mg (Tab *Pt Own Med*) 0 each PO BEDTIME [facility] Polyethylene Glycol (Miralax) 17 gm PO DAILY PRN PRN Reason: Constipation Potassium Chloride (Pharmacy To Dose - Potassium Replacement) 1 dose .XX ASDIRECTED [facility] Potassium Chloride (Klor-Con M20) 40 meq PO Q4H [facility] Stop: 04/13/17 13:01 Senna/Docusate Sodium (Senna Plus) 1 tab PO BID PRN PRN Reason: Constipation Temazepam (Restoril) 7.5 mg PO BEDTIME PRN PRN Reason: Sleep Discontinued Medications Sodium Chloride (Normal Saline) 1,000 mls [facility] Last Admin: 04/11/17 17:50 Dose: 125 mls/hr Sodium Chloride (Normal Saline) 250 mls @ 25 [facility] Last Admin: 04/10/17 23:10 Dose: 25 mls/hr Magnesium Sulfate (Magnesium Sulfate 2 Gm In Water 50 Ml) 50 mls @ 50 mls/hr IV ONETIME ONE Stop: 04/11/17 09:59 Last Admin: 04/11/17 09:32 Dose: 50 mls/hr Pantoprazole Sodium 40 mg/ (Sodium Chloride) 100 mls @ 200 mls/hr IV ONETIME ONE Stop: 04/11/17 08:28 Last Admin: 04/11/17 10:10 Dose: Not Given Sodium Ferric Gluconat/Sucrose (187.5 mg/ Sodium Chloride) 115 mls @ 55 mls/hr IV ONETIME ONE Stop: 04/11/17 15:05 Last Admin: 04/11/17 13:12 Dose: 55 mls/hr Heparin Sodium/Dextrose (Heparin 25,000 Units In D5w 500 Ml) 25,000 units in 500 mls @ 29.48 mls/hr IV TITRATE [facility]; 22 UNITS/KG/HR PRN Reason: Protocol Last Admin: 04/12/17 11:32 Dose: 29.48 mls/hr Heparin Sodium/Dextrose (Heparin 25,000 Units In D5w 500 Ml) 25,000 units in 500 mls @ 29.48 mls/hr IV TITRATE [facility]; 22 UNITS/KG/HR PRN Reason: Protocol Heparin Sodium/Dextrose (Heparin 25,000 Units In D5w 500 Ml) 25,000 units in 500 mls @ 25.493 mls/hr IV TITRATE [facility]; 19 UNITS/KG/HR PRN Reason: Protocol Heparin Sodium/Dextrose (Heparin 25,000 Units In D5w 500 Ml) 25,000 units in 500 mls @ 21.468 mls/hr IV TITRATE [facility]; 16 UNITS/KG/HR PRN Reason: Protocol Stop: 04/13/17 06:00 Multivitamins (Thera) 1 each PO BEDTIME [facility] Last Admin: 04/10/17 20:39 Dose: 1 each Atorvastatin 40mg (Tab *Pt Own Med*) 1 each PO BEDTIME [facility] Last Admin: 04/12/17 20:55 Dose: 1 each Pantoprazole Sodium (Protonix Iv) 40 mg IV ONETIME ONE Stop: 04/11/17 10:16 Last Admin: 04/11/17 10:29 Dose: 40 mg Simvastatin (Zocor) 40 mg PO BEDTIME [facility] Last Admin: 04/11/17 21:29 Dose: 40 mg Temazepam (Restoril) 7.5 mg PO BEDTIME PRN PRN Reason: Sleep - Exam Quality Assessment: DVT prophylaxis (heparin on hold) General: alert, oriented, cooperative, no acute distress HEENT: Pupils equal, Pupils reactive, EOMI, Mucous membr. moist/pink Neck: supple Lungs: Clear to auscultation, Normal respiratory effort Cardiovascular: Regular Rate, Regular Rhythm Abdomen: bowel sounds present, soft, no tenderness, no distension (Female) Exam: Deferred Extremities: no edema Neurological: no new focal deficit Psy/Mental Status: alert, normal affect, normal mood - Problem List & Annotations (1) Anemia associated with acute blood loss SNOMED Code(s): 659512877 Code(s): D62 - ACUTE POSTHEMORRHAGIC ANEMIA Status: Acute Priority: High Current Visit: Yes (2) Gastrointestinal hemorrhage with melena SNOMED Code(s): 84397213, 959280777 Code(s): K92.1 - MELENA Status: Acute Priority: High Current Visit: Yes (3) Hx of pulmonary embolus SNOMED Code(s): 882378174 Code(s): Z86.711 - PERSONAL HISTORY OF PULMONARY EMBOLISM Status: Chronic Priority: High Current Visit: Yes - Problem List Review Problem List Initiated/Reviewed/Updated: Yes - My Orders Last 24 Hours: My Active Orders 04/13/17 Breakfast NPO Now [Nothing per Oral Now Diet] [DIET] - Plan Plan:: Assessment/Plan: Acute: Anemia - 2/2 slow GI bleed---planned EGD today with Dr. Leslie; NPO for procedure - Black Tarry Stools- occult + - Risk Factors: on Xarelto and +/- NSAIDs use (takes Tylenol and 2 Motrin ( 200 mg) PRN for occasional aches and pain but has not been taking much - No hx/o GI Malignancy/Diverticulosis/Diverticulitis/PUD/Gastritis/ Esophagitis - Has not had an EGD in the past - Last colonoscopy was 4 years with benign finding (performed by Dr. Leslie) - S/p 2 units of PRBC transfusion - Hgb 6.8--> 8.6 --> 8.1-->8.4 today - Routine H/H - S/p Iron infusion x 1 GI Bleed - Black tarry stool after she was put on xarelto for Bilateral PE treatment - Hold NOAC for now - GS consult w/ Dr. Leslie: Planned EGD today, heparin drip for PE protocol directed per Dr. Leslie--heparin on hold at 0600 today for procedure - Continue PPIs for Upper GI bleed Recent Bilateral PE - Proved: after a prolonged travel to [place], [place] - She was put on xarelto on the of this month - SCDs for DVT prophylaxis---heparin as above per Dr. Leslie direction - Per patient, she was negative for blood clot on her leg when they tested her - Will to reach [place], see if they can send us copies of her medical records Chronic: HLD Plan: She is clinically stable Routine AM Labs SW/CM for d/c planning Additional orders as above DVT PPx: SCDs/Heparin drip Monitor H/H Code status: DNR/DNI
[2017-04-13] MEDS ORDERED: Magnesium Sulfate/Water 2 GM in Premix Bag 1 BAG IV ONE (10:30)
--- NOTE | 2017-04-13 10:47 | PCM.PREANE ---
Preanesthetic Assessment - Anesthesia/Transfusion/Family Hx Anesthesia History: Prior Anesthesia Without Reaction Family History of Anesthesia Reaction: No Transfusion History: Prior Transfusion Without Reaction - Review of Systems General: No Symptoms Pulmonary: No Symptoms Cardiovascular: No Symptoms, Chest Pain (associated with blood clots in lungs) Gastrointestinal: No symptoms Neurological: No Symptoms Other: Reports: Easy Bleeding, Easy Bruising - Physical Assessment NPO Status Date: 04/12/17 NPO Status Time: 23:30 Pulse: 50 O2 Sat by Pulse Oximetry: 97 Respiratory Rate: 14 Blood Pressure: 124/48 Temperature: 98.6 F Vital Signs: Last Vital Signs Temp 98.6 F 04/13/17 08:15 Pulse 50 L 04/13/17 08:15 Resp 14 04/13/17 08:15 BP 124/48 L 04/13/17 08:15 Pulse Ox 97 04/13/17 08:15 Height: 5 ft 1 in Weight: 67.721 kg ASA Class: 2 Mental Status: Alert & Oriented x3 Airway Class: Mallampati = 1 Dentition: Reports: Normal Dentition Thyro-Mental Finger Breadths: 3 Mouth Opening Finger Breadths: 3 ROM/Head Extension: Full Lungs: Clear to auscultation, Normal respiratory effort Cardiovascular: Regular Rate, Regular Rhythm - Lab Values: Laboratory Last Values WBC 5.16 K/mm3 (3.98-10.04) 04/13/17 04:49 RBC 2.62 M/mm3 (3.98-5.22) L 04/13/17 04:49 Hgb 8.4 gm/L (11.2-15.7) L 04/13/17 04:49 Hct 26.5 % (34.1-44.9) L 04/13/17 04:49 MCV 101.1 fl (79.4-94.8) H 04/13/17 04:49 MCH 32.1 pg (25.6-32.2) 04/13/17 04:49 MCHC 31.7 g/dl (32.2-35.5) L 04/13/17 04:49 RDW Std Deviation 60.0 fL (36.4-46.3) H 04/13/17 04:49 Plt Count 178 K/mm3 (182-369) L 04/13/17 04:49 MPV 12.0 fl (9.4-12.3) 04/13/17 04:49 Neut % (Auto) 44.5 % (34.0-71.1) 04/13/17 04:49 Lymph % (Auto) 34.7 % (19.3-51.7) 04/13/17 04:49 [place] % (Auto) 12.6 % (4.7-12.5) H 04/13/17 04:49 Eos % (Auto) 7.6 (0.7-5.8) H 04/13/17 04:49 Baso % (Auto) 0.6 % (0.1-1.2) 04/13/17 04:49 Neut # (Auto) 2.30 K/mm3 (1.56-6.13) 04/13/17 04:49 Lymph # (Auto) 1.79 K/mm3 (1.18-3.74) 04/13/17 04:49 [place] # (Auto) 0.65 K/mm3 (0.24-0.36) H 04/13/17 04:49 Eos # (Auto) 0.39 K/mm3 (0.04-0.36) H 04/13/17 04:49 Baso # (Auto) 0.03 K/mm3 (0.01-0.08) 04/13/17 04:49 Percent Retic 4.20 % (0.50-1.70) H 04/11/17 05:34 APTT > 153 SECONDS (22-36) H* 04/13/17 04:49 Sodium 142 mEq/L (136-145) 04/13/17 04:49 Potassium 3.6 mEq/L (3.5-5.1) 04/13/17 04:49 Chloride 111 mEq/L (98-107) H 04/13/17 04:49 Carbon Dioxide 23 mEq/L (21-32) 04/13/17 04:49 Anion Gap 11.6 (5-15) 04/13/17 04:49 BUN 16 mg/dL (7-18) 04/13/17 04:49 Creatinine 0.9 mg/dL (0.55-1.02) 04/13/17 04:49 Est Cr Clr Drug Dosing 36.99 mL/min 04/13/17 04:49 Estimated GFR (MDRD) > 60 mL/min (>60) 04/13/17 04:49 BUN/Creatinine Ratio 17.8 (14-18) 04/13/17 04:49 Glucose 104 mg/dL (83-115) 04/13/17 04:49 Calcium 7.9 mg/dL (8.5-10.1) L 04/13/17 04:49 Magnesium 1.9 mg/dl (1.8-2.4) 04/13/17 04:49 Vitamin B12 820 pg/ml (193-986) 04/11/17 05:34 Folate 33.5 ng/mL (8.6-58.9) 04/11/17 05:34 Blood Type A POSITIVE 04/10/17 19:50 Gel Antibody Screen Negative 04/10/17 19:50 Crossmatch See Detail 04/10/17 19:50 - Allergies Allergies/Adverse Reactions: Allergies Allergy/AdvReac Type Severity Reaction Status Date / Time No Known Allergies Allergy Verified 04/10/17 18:48 - Blood Blood Available: No - Acknowledgements Anesthesia Type Planned: MAC Pt an Appropriate Candidate for the Planned Anesthesia: Yes Alternatives and Risks of Anesthesia Discussed w Pt/Guardian: Yes Pt/Guardian Understands and Agrees with Anesthesia Plan: Yes PreAnesthesia Questionnaire HEENT History: Reports: Impaired Vision Other HEENT History: wears glasses Cardiovascular History: Reports: Heart Murmur, High Cholesterol Respiratory History: Reports: Asthma (as a child but outgrew) Endocrine/Metabolic History: Reports: None Hematologic History: Reports: Anemia, Anticoagulation Therapy Other Hematologic History: Currently hg 6.8 Oncologic (Cancer) History: Reports: None - Infectious Disease History Infectious Disease History: Reports: Chicken Pox, Measles, Mumps Other Infectious Disease History: 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 - Past Surgical History HEENT Surgical History: Reports: Adenoidectomy, Cataract Surgery, Tonsillectomy Other HEENT Surgeries/Procedures: cataract surgery bilat, oorphrectomy Cardiovascular Surgical History: Reports: None Respiratory Surgical History: Reports: None GI Surgical History: Reports: Appendectomy, Hernia Repair/Other Other GI Surgeries/Procedures: Current GI Bleed; Umbilical hernia repair Female Surgical History: Reports: Oophorectomy Other Female Surgeries/Procedures: R oophorectomy Dermatological Surgical History: Reports: None - SUBSTANCE USE Smoking Status *Q: Former Smoker (quit 26 years ago) Tobacco Use Within Last Twelve Months: No Second Hand Smoke Exposure: No Days Per Week of Alcohol Use: 0 (rare) Recreational Drug Use History: No - HOME MEDS Home Medications: Home Meds Ubidecarenone [Co Q-10] 100 mg PO BEDTIME 04/11/17 [History] atorvaSTATin [Lipitor] 40 mg PO BEDTIME 04/11/17 [History] - CURRENT (IN HOUSE) MEDS Current Meds: Current Medications Acetaminophen (Tylenol) 650 mg PO Q4H PRN PRN Reason: Pain (Mild 1-3)/fever Hydrocodone Bitart/Acetaminophen ([place] 325-5 Mg) 1 tab PO Q4H PRN PRN Reason: Pain (moderate 4-6) Albuterol (Proventil Neb Soln) 2.5 mg NEB Q2H PRN PRN Reason: Shortness Of Breath/wheezing Bisacodyl (Dulcolax) 5 mg PO DAILY PRN PRN Reason: Constipation Docusate Sodium (Colace) 100 mg PO BID PRN PRN Reason: Constipation Hydralazine HCl (Apresoline) 20 mg IVPUSH Q4H PRN PRN Reason: Hypertension Hydromorphone HCl (Dilaudid) 0.25 mg IVPUSH Q2H PRN PRN Reason: Pain (severe 7-10) Promethazine HCl 12.5 mg/ (Sodium Chloride) 50.5 mls @ 100 mls/hr IV Q6H PRN PRN Reason: Nausea/Vomiting Magnesium Sulfate 2 gm/ Premix 50 mls @ 25 mls/hr IV ONETIME ONE Stop: 04/13/17 12:29 Last Admin: 04/13/17 10:36 Dose: 25 mls/hr Potassium Chloride 10 meq/ (Premix) 100 mls @ 100 mls/hr IV Q1H [facility] Stop: 04/13/17 14:59 Lorazepam (Ativan) 0.25 mg IV Q6H PRN PRN Reason: Anxiety Magnesium Sulfate (Pharmacy To Dose - Magnesium Replacement) 1 dose .XX ASDIRECTED [facility] Metoprolol Tartrate (Lopressor) 5 mg IVPUSH Q4H PRN PRN Reason: Tachycardia Ondansetron HCl (Zofran) 4 mg IV Q6H PRN PRN Reason: Nausea/Vomiting Pantoprazole Sodium (Protonix) 40 mg PO BIDAC [facility] Last Admin: 04/13/17 05:40 Dose: 40 mg Ubidecarenone 100 Mg 0 each PO BEDTIME [facility] Last Admin: 04/12/17 20:56 Dose: Not Given Atorvastatin 40mg (Tab *Pt Own Med*) 0 each PO BEDTIME [facility] Polyethylene Glycol (Miralax) 17 gm PO DAILY PRN PRN Reason: Constipation Potassium Chloride (Pharmacy To Dose - Potassium Replacement) 1 dose .XX ASDIRECTED [facility] Senna/Docusate Sodium (Senna Plus) 1 tab PO BID PRN PRN Reason: Constipation Temazepam (Restoril) 7.5 mg PO BEDTIME PRN PRN Reason: Sleep Discontinued Medications Sodium Chloride (Normal Saline) 1,000 mls @ 125 mls/hr IV ASDIRECTED [facility] Last Admin: 04/11/17 17:50 Dose: 125 mls/hr Sodium Chloride (Normal Saline) 250 mls @ 25 mls/hr IV ASDIRECTED [facility] Last Admin: 04/10/17 23:10 Dose: 25 mls/hr Magnesium Sulfate (Magnesium Sulfate 2 Gm In Water 50 Ml) 50 mls @ 50 mls/hr IV ONETIME ONE Stop: 04/11/17 09:59 Last Admin: 04/11/17 09:32 Dose: 50 mls/hr Pantoprazole Sodium 40 mg/ (Sodium Chloride) 100 mls @ 200 mls/hr IV ONETIME ONE Stop: 04/11/17 08:28 Last Admin: 04/11/17 10:10 Dose: Not Given Sodium Ferric Gluconat/Sucrose (187.5 mg/ Sodium Chloride) 115 mls @ 55 mls/hr IV ONETIME ONE Stop: 04/11/17 15:05 Last Admin: 04/11/17 13:12 Dose: 55 mls/hr Heparin Sodium/Dextrose (Heparin 25,000 Units In D5w 500 Ml) 25,000 units in 500 mls @ 29.48 mls/hr IV TITRATE [facility]; 22 UNITS/KG/HR PRN Reason: Protocol Last Admin: 04/12/17 11:32 Dose: 29.48 mls/hr Heparin Sodium/Dextrose (Heparin 25,000 Units In D5w 500 Ml) 25,000 units in 500 mls @ 29.48 mls/hr IV TITRATE [facility]; 22 UNITS/KG/HR PRN Reason: Protocol Heparin Sodium/Dextrose (Heparin 25,000 Units In D5w 500 Ml) 25,000 units in 500 mls @ 25.493 mls/hr IV TITRATE [facility]; 19 UNITS/KG/HR PRN Reason: Protocol Heparin Sodium/Dextrose (Heparin 25,000 Units In D5w 500 Ml) 25,000 units in 500 mls @ 21.468 mls/hr IV TITRATE [facility]; 16 UNITS/KG/HR PRN Reason: Protocol Stop: 04/13/17 06:00 Multivitamins (Thera) 1 each PO BEDTIME [facility] Last Admin: 04/10/17 20:39 Dose: 1 each Atorvastatin 40mg (Tab *Pt Own Med*) 1 each PO BEDTIME [facility] Last Admin: 04/12/17 20:55 Dose: 1 each Pantoprazole Sodium (Protonix Iv) 40 mg IV ONETIME ONE Stop: 04/11/17 10:16 Last Admin: 04/11/17 10:29 Dose: 40 mg Simvastatin (Zocor) 40 mg PO BEDTIME [facility] Last Admin: 04/11/17 21:29 Dose: 40 mg Temazepam (Restoril) 7.5 mg PO BEDTIME PRN PRN Reason: Sleep
[2017-04-13] MEDS: Potassium Chloride 10 MEQ in Premix Bag 1 BAG IV SCH ×4 (11:09→17:10)
[2017-04-13] MEDS ORDERED: Sodium Chloride 0.9% 500 ML IV SCH (13:45)
[2017-04-13] MEDS ORDERED: Sodium Chloride 0.9% 500 ML ONE (13:55)
[2017-04-13] MEDS ORDERED: Lidocaine 1% 4 ML ONE (15:40)
[2017-04-13] MEDS ORDERED: Propofol 200 MG/20 ML SDV ONE (15:40)
[2017-04-13] MEDS ORDERED: Nitroglycerin 2% Oint 1 GM UD Packet ONE (16:20)
--- NOTE | 2017-04-13 16:51 | PCM48HPAN ---
Post Anesthesia Note - EVALUATION WITHIN 48HRS OF ANESTHETIC Vital Signs in Normal Range: Yes Patient Participated in Evaluation: Yes Respiratory Function Stable: Yes Airway Patent: Yes Cardiovascular Function Stable: Yes Hydration Status Stable: Yes Pain Control Satisfactory: Yes Nausea and Vomiting Control Satisfactory: Yes Mental Status Recovered: Yes (no complaints. )
--- NOTE | 2017-04-13 16:52 | PCM.OPNOTE ---
- General Post-Op/Procedure Note Date of Surgery/Procedure: 04/13/17 Operative Procedure(s): Diagnostic EGD Pre Op Diagnosis: Melena and anemia of uncertain etiology Post-Op Diagnosis: Very mild gastritis in the antrum Anesthesia Technique: MAC Primary Surgeon: Sheridan Leslie Anesthesia Provider: Landy Laguna Pathology: None Fluid Replacement, Intraop: 100 (mL crystalloid ) EBL in mLs: 0 Complications: None Condition: Stable Free Text/Narrative:: INDICATION FOR PROCEDURE: The patient is a 81-year-old woman who is referred to me by Dr. Laith Hubbard for evaluation of melena on Xarelto for spontaneous PE with concern for GI bleeding. She has had a recent colonoscopy 4 years ago. EGD had been discussed with the patient and risks of the associated procedure. The patient found these risks acceptable and agreed to proceed. DESCRIPTION OF PROCEDURE: The patient was taken to the operating room and placed in the left lateral decubitus position. After induction of adequate sedation, a bite block was placed. A standard Olympus gastroscope was inserted into the oropharynx and guided down the esophagus without difficulty. The gastroesophageal junction was appreciated at 38 cm from the teeth. There was no evidence of stricture or esophageal ulcerations. The scope was advanced into the stomach, and there was a very small patch of mild gastritis near the antrum. The scope was passed into the proximal jejunum and the duodenum which were unremarkable. There were no petechiae or ulcerations. The proximal jejunum was grossly normal in appearance. The scope was withdrawn into the antrum. The remainder of the gastric body was examined, and there were no other findings. The scope was retroflexed, and there was no evidence of hiatal hernia. The scope was straightened and withdrawn to the GE junction. The scope was withdrawn through the remainder of the esophagus and no further abnormalities were noted. The posterior oropharynx was grossly normal in appearance. The scope was then fully withdrawn. The patient was awakened from sedation and transferred to the recovery room in stable condition having tolerated the procedure well. POSTOPERATIVE PLAN: I discussed with the patient's daughter and Dr. Hubbard my intraoperative findings and postoperative recommendations. The patient is to continue a PPI daily. She may restart her Xarelto. She is to avoid oral iron and watch stools for melena. If melena recurs or hemoglobin drops, capsule endoscopy and colonoscopy would be indicated. The patient is to call with any worsening of symptoms or questions prior to appointment.
[2017-04-13] MEDS ORDERED: Rivaroxaban 10 MG Tab PO SCH (17:00)
[2017-04-13] MEDS: XARELTO 15 MG PO SCH (18:49)
[2017-04-14] MEDS: XARELTO 15 MG PO SCH (06:14)
[2017-04-14] MEDS: Pantoprazole 40 MG Tab.CR PO SCH (06:14)
[2017-04-14 07:51] VITALS: BP 121/66
--- NOTE | 2017-04-14 08:14 | PCM.DCSUM1 ---
Discharge Summary - Hospital Course Brief History: This is a healthy 81-year-old elderly white female with no known past medical history who comes in from [facility] for further evaluation of anemia associated with black tarry stool. - Discharge Data Discharge Date: 04/14/17 Discharge Disposition: Home, Self-Care 01 Condition: Stable - Discharge Diagnosis/Problem(s) (1) Anemia associated with acute blood loss SNOMED Code(s): 693732065 ICD Code: D62 - ACUTE POSTHEMORRHAGIC ANEMIA Status: Resolved Priority: High (2) Hx of pulmonary embolus SNOMED Code(s): 906373258 ICD Code: Z86.711 - PERSONAL HISTORY OF PULMONARY EMBOLISM Status: Chronic Priority: High (3) Gastrointestinal hemorrhage with melena SNOMED Code(s): 80359685, 179698670 ICD Code: K92.1 - MELENA Status: Resolved Priority: High (4) Gastritis determined by endoscopy SNOMED Code(s): 8528830, 395598895 ICD Code: K29.70 - GASTRITIS, UNSPECIFIED, WITHOUT BLEEDING Status: Acute - Patient Summary/Data Operative Procedure(s) Performed: Diagnostic EGD Complications: None Consults: Consultations 04/10/17 17:43 Consult to Case Management [CONS] Routine Consult to [id number] [employer]or Crewman [CONS] Routine 04/12/17 10:21 Consult to Physician [CONS] Routine Recommended Follow-up Testing/Procedures: CBC by Thursday for Anemia Hospital Course: Patient was primarily admitted for medical management of anemia related to GI bleed. Patient carried no history of GI bleed or malignancy. She had colonoscopy done 4 years ago with benign findings. 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 On admission patient had a hemoglobin of 6.8. She was transfused 2 units of packed red blood cells. She also received a one-time dose of iron infusion. Patient improved on this regimen. Dr. Leslie was consulted for further evaluation. Patient was put on heparin drip while her xarelto was stopped. She underwent upper endoscopy and was found to have mild gastritis. Her hospital course was uncomplicated. Her most recent hemoglobin is stable at 9.6. Her bowel movement this morning showed brown colored stool. She is now ready for discharge. She was advised to avoid NSAIDs and to stop her low-dose aspirin for now. She is to continue with xarelto for treatment of her bilateral PE and resume all her routine activities without any restrictions. Patient was further advised to call her primary care doctor or Dr. Leslie for worsening of her symptom or recurrence of black tarry stool. The patient expressed understanding and in agreement with the plans as discussed above. All questions were answered. - Patient Instructions Diet: Usual Diet as Tolerated Activity: As Tolerated Driving: May Drive Today Showering/Bathing: May Shower Notify Provider of: Fever, Nausea and/or Vomiting Other/Special Instructions: - Please take all medications as directed. - Repeat CBC level by Thursday for Anemia. - Avoid Iron pill and NSAIDs (e.g Motrin , Advil, Ibuprofen, BC or Goody's Powder). - Take tylenol for occasional aches and pain. - Resume daily routine activities. - If your symptom persists or gets, call your doctor immediately or come to nearest medical facility for further evaluation - Discharge Plan Prescriptions/Med Rec: Omeprazole Magnesium 20 mg PO BID #60 capsule. Home Medications: Home Meds Ubidecarenone [Co Q-10] 100 mg PO BEDTIME 04/11/17 [History] atorvaSTATin [Lipitor] 40 mg PO BEDTIME 04/11/17 [History] Omeprazole Magnesium 20 mg PO BID #60 capsule. 04/14/17 [Rx] Rivaroxaban [Xarelto] 10 mg PO DAILY 04/14/17 [History] Patient Handouts: Blood Transfusion, [id number], Esophagogastroduodenoscopy, Anemia, Nonspecific, Stool for Occult Blood Test Referrals: Taylor Ayala, [facility] [Primary Care Provider] - (Please schedule a follow up apt. with Taylor Ayala in 1-2 weeks. ) - Discharge Summary/Plan Comment DC Time >30 min.: Yes (45 mins) Discharge Summary/Plan Comment: Discharge to Home - General Info Date of Service: 04/14/17 Admission Dx/Problem (Free Text: Admission Diagnosis/Problem Admission Diagnosis/Problem Anemia Subjective Update: Follow Up - Review of Systems General: Denies: Fever, Weakness, Fatigue, Malaise, Chills HEENT: Reports: no symptoms Pulmonary: Denies: shortness of breath Cardiovascular: Denies: Chest Pain Gastrointestinal: Reports: Flatus. Denies: Abdominal pain, Hematochezia, Melena , Nausea, Vomiting Genitourinary: Reports: no symptoms Musculoskeletal: Reports: no symptoms Skin: Reports: no symptoms Neurological: Denies: Confusion, Difficulty Walking, Weakness, Gait Disturbance Psychiatric: Denies: depression, anxiety, agitation Systems Review Comment: No overnight or acute issues. She slept well at night. She has no new complaints. Her Hgb is now at 9.6. - Patient Data Vitals - Most Recent: Last Vital Signs Temp 36.6 C 04/14/17 07:49 Pulse 57 L 04/14/17 07:49 Resp 16 04/14/17 07:49 BP 121/66 04/14/17 07:49 Pulse Ox 96 04/14/17 07:49 Weight - Most Recent: 67.132 kg I&O - Last 24 hours: Intake & Output 04/13/17 04/14/17 04/14/17 22:59 06:59 14:59 Intake Total 450 750 Output Total 1700 750 Balance -1250 0 Lab Results - Last 24 hrs: Laboratory Results - last 24 hr 04/14/17 Range/Units 07:18 Hgb 9.6 L (11.2-15.7) gm/L Hct 30.8 L (34.1-44.9) % Med Orders - Current: Current Medications Acetaminophen (Tylenol) 650 mg PO Q4H PRN PRN Reason: Pain (Mild 1-3)/fever Hydrocodone Bitart/Acetaminophen ([place] 325-5 Mg) 1 tab PO Q4H PRN PRN Reason: Pain (moderate 4-6) Albuterol (Proventil Neb Soln) 2.5 mg NEB Q2H PRN PRN Reason: Shortness Of Breath/wheezing Bisacodyl (Dulcolax) 5 mg PO DAILY PRN PRN Reason: Constipation Docusate Sodium (Colace) 100 mg PO BID PRN PRN Reason: Constipation Hydralazine HCl (Apresoline) 20 mg IVPUSH Q4H PRN PRN Reason: Hypertension Hydromorphone HCl (Dilaudid) 0.25 mg IVPUSH Q2H PRN PRN Reason: Pain (severe 7-10) Promethazine HCl 12.5 mg/ (Sodium Chloride) 50.5 mls @ 100 mls/hr IV Q6H PRN PRN Reason: Nausea/Vomiting Lorazepam (Ativan) 0.25 mg IV Q6H PRN PRN Reason: Anxiety Magnesium Sulfate (Pharmacy To Dose - Magnesium Replacement) 1 dose .XX ASDIRECTED [facility] Metoprolol Tartrate (Lopressor) 5 mg IVPUSH Q4H PRN PRN Reason: Tachycardia Ondansetron HCl (Zofran) 4 mg IV Q6H PRN PRN Reason: Nausea/Vomiting Pantoprazole Sodium (Protonix) 40 mg PO BIDAC [facility] Last Admin: 04/14/17 06:14 Dose: 40 mg Ubidecarenone 100 Mg 0 each PO BEDTIME [facility] Last Admin: 04/13/17 20:51 Dose: Not Given Atorvastatin 40mg (Tab *Pt Own Med*) 0 each PO BEDTIME [facility] Last Admin: 04/13/17 20:51 Dose: 1 each Xarelto 15 Mg Own (Med) 1 each PO BIDMEALS [facility] Last Admin: 04/14/17 06:14 Dose: 1 each Polyethylene Glycol (Miralax) 17 gm PO DAILY PRN PRN Reason: Constipation Potassium Chloride (Pharmacy To Dose - Potassium Replacement) 1 dose .XX ASDIRECTED [facility] Senna/Docusate Sodium (Senna Plus) 1 tab PO BID PRN PRN Reason: Constipation Temazepam (Restoril) 7.5 mg PO BEDTIME PRN PRN Reason: Sleep Discontinued Medications Sodium Chloride (Normal Saline) 1,000 mls [facility] 125 [facility] Admin: 04/11/17 17:50 Dose: 125 mls/hr Sodium Chloride (Normal Saline) 250 mls @ 25 mls/hr IV [facility] Last Admin: 04/10/17 23:10 Dose: 25 mls/hr Magnesium Sulfate (Magnesium Sulfate 2 Gm In Water 50 Ml) 50 mls @ 50 mls/hr IV ONETIME ONE Stop: 04/11/17 09:59 Last Admin: 04/11/17 09:32 Dose: 50 mls/hr Pantoprazole Sodium 40 mg/ (Sodium Chloride) 100 mls @ 200 mls/hr IV ONETIME ONE Stop: 04/11/17 08:28 Last Admin: 04/11/17 10:10 Dose: Not Given Sodium Ferric Gluconat/Sucrose (187.5 mg/ Sodium Chloride) 115 mls @ 55 mls/hr IV ONETIME ONE Stop: 04/11/17 15:05 Last Admin: 04/11/17 13:12 Dose: 55 mls/hr Heparin Sodium/Dextrose (Heparin 25,000 Units In D5w 500 Ml) 25,000 units in 500 mls @ 29.48 mls/hr IV TITRATE MIKE; 22 UNITS/KG/HR PRN Reason: Protocol Last Admin: 04/12/17 11:32 Dose: 29.48 mls/hr Heparin Sodium/Dextrose (Heparin 25,000 Units In D5w 500 Ml) 25,000 units in 500 mls @ 29.48 mls/hr IV TITRATE MIKE; 22 UNITS/KG/HR PRN Reason: Protocol Heparin Sodium/Dextrose (Heparin 25,000 Units In D5w 500 Ml) 25,000 units in 500 mls @ 25.493 mls/hr IV TITRATE MIKE; 19 UNITS/KG/HR PRN Reason: Protocol Heparin Sodium/Dextrose (Heparin 25,000 Units In D5w 500 Ml) 25,000 units in 500 mls @ 21.468 mls/hr IV TITRATE MIKE; 16 UNITS/KG/HR PRN Reason: Protocol Stop: 04/13/17 06:00 Magnesium Sulfate 2 gm/ Premix 50 mls @ 25 mls/hr IV ONETIME ONE Stop: 04/13/17 12:29 Last Admin: 04/13/17 10:36 Dose: 25 mls/hr Potassium Chloride 10 meq/ (Premix) 100 mls @ 100 mls/hr IV Q1H MIKE Stop: 04/13/17 14:59 Last Admin: 04/13/17 17:10 Dose: 100 mls/hr Sodium Chloride (Normal Saline) 500 mls @ 50 mls/hr IV ASDIRECTED MIKE Stop: 04/13/17 21:00 Last Admin: 04/13/17 15:00 Dose: 50 mls/hr Sodium Chloride (Normal Saline) Confirm Administered Dose 500 mls @ as directed .ROUTE .STK-MED ONE Stop: 04/13/17 13:56 Last Admin: 04/13/17 15:00 Dose: Not Given Lidocaine HCl (Xylocaine-Mpf 1%) Confirm Administered Dose 4 mls @ as directed .ROUTE .STK-MED ONE Stop: 04/13/17 15:41 Multivitamins (Thera) 1 each PO BEDTIME MIKE Last Admin: 04/10/17 20:39 Dose: 1 each Nitroglycerin (Nitro-Bid 2%) Confirm Administered Dose 1 gm .ROUTE .STK-MED ONE Stop: 04/13/17 16:21 Atorvastatin 40mg (Tab *Pt Own Med*) 1 each PO BEDTIME [facility] Last Admin: 04/12/17 20:55 Dose: 1 each Pantoprazole Sodium (Protonix Iv) 40 mg IV ONETIME ONE Stop: 04/11/17 10:16 Last Admin: 04/11/17 10:29 Dose: 40 mg Propofol (Diprivan 20 Ml) Confirm Administered Dose 200 mg .ROUTE .STK-MED ONE Stop: 04/13/17 15:41 Rivaroxaban (Xarelto) 15 mg PO BIDMEALS [facility] Last Admin: 04/13/17 18:45 Dose: Not Given Simvastatin (Zocor) 40 mg PO BEDTIME [facility] Last Admin: 04/11/17 21:29 Dose: 40 mg Temazepam (Restoril) 7.5 mg PO BEDTIME PRN PRN Reason: Sleep - Exam General: Reports: alert, oriented, cooperative, no acute distress HEENT: Reports: Pupils equal, Pupils reactive, EOMI, Mucous membr. moist/pink Neck: Reports: supple, trachea midline, no JVD, no thyromegaly Lungs: Reports: Clear to auscultation, Normal respiratory effort Cardiovascular: Reports: Regular Rate, Regular Rhythm Abdomen: Reports: bowel sounds present, soft, no tenderness, no distension (Female) Exam: Deferred Rectal (Female) Exam: Deferred Back Exam: Reports: Normal Inspection, Decreased Range of Motion Extremities: Reports: no edema, normal pulses, no tenderness/swelling, no cyanosis Skin: Reports: warm, dry, intact Neurological: Reports: no new focal deficit Psy/Mental Status: Reports: alert, normal affect, normal mood *Q Meaningful Use (DIS) - VTE *Q VTE Criteria *Q: - Stroke *Q Stroke Criteria *Q: - AMI *Q AMI Criteria *Q:
== END 2017-04-14 10:13 | disposition home or self-care (01) ==
LOC: JD.MS 16:34 → INTOOBSV 16:34 → JD.MS 16:53
PROVIDERS: ADMIT Internal Medicine; ATTEND Internal Medicine
PROC: 30233N1 Transfusion of Nonautologous Red Blood Cells into Peripheral Vein, Percutaneous Approach (ICD-10-PCS; principal; 2017-04-13)
PROC: 0DJ08ZZ Inspection of Upper Intestinal Tract, Via Natural or Artificial Opening Endoscopic (ICD-10-PCS; 2017-04-13)
DX: D62 Acute posthemorrhagic anemia (principal); Z86.711 Personal history of pulmonary embolism; K92.1 Melena; K29.70 Gastritis, unspecified, without bleeding; I26.99 Other pulmonary embolism without acute cor pulmonale; Z66 Do not resuscitate; J45.909 Unspecified asthma, uncomplicated; Z87.891 Personal history of nicotine dependence
CPT/HCPCS: 36415; 36430; 43235; 80048; 82272; 82607; 82746; 83735; 85014; 85018; 85025; 85045; 85730; 86850; 86900; 86901; 86922; 96361; 96365; 96366; 96367; 96375; A9270; C9113; G0378; J1644; J2916; J3480; J7030; J7040; J7050; P9016; J2704; J3475

== ENCOUNTER 2017-11-13 14:07 | Emergency (ER) | payer MEDICARE, BC ==
--- NOTE | 2017-11-13 14:50 | EDM.PDOC ---
ED HPI GENERAL MEDICAL PROBLEM - General Chief Complaint: Cardiovascular Problem Stated Complaint: CHEST PAIN Time Seen by Provider: 11/13/17 14:45 Source of Information: Reports: Patient, Family (friend) History Limitations: Reports: No Limitations - History of Present Illness INITIAL COMMENTS - FREE TEXT/NARRATIVE: 82-year-old female presents to the ED for evaluation of her current bouts of transient central chest pain. Initial chest pain awoke her from sleep about 4 nights ago with central chest and heaviness. It lasted a good half an hour. She didn't do anything to make it go away such as taking Tums or Rolaids. She really never felt was heartburn. Since then she spent a little bit more short of breath and hasn't been feeling quite herself up until this morning when she feels completely back to normal. She was seen at the [facility] and due to abnormalities detected on her ECG shows sent to the ED for further evaluation. 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 She is currently on 20 mg of prednisone daily. She does use GI protection with Prilosec daily. She is not prone to reflux and has no known hiatal hernia. She states she can swallow without any issue. No burps or belching. Yesterday she felt a little more short of breath on going up a flight of stairs than normal. 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 Treatment was complicated by a severe GI bleed that left her with a hemoglobin of 6.6 in early April and she required 3 units of packed cells. Endoscopy both upper and lower did not identify a source of bleeding. After today she was put back on her Xarelto and has had no problems since. Denies cough or sputum production. States that she did have some upper respiratory tract symptoms about 3 or 4 weeks ago but not really influenza. Denies any cough or sputum production at this time. No fever or chills. Has no known coronary disease. The ECG sent over from the clinic did show a Q wave in V1 and near Q-wave in V2 suggesting the possibility of an old anteroseptal myocardial infarction. There is no sign no signs of acute ischemia. ECG done here reveals no signs of myocardial infarction. There is initial slow R-wave progression but no signs of acute AL. She has left axis deviation of -18 and a diffuse early repolarization pattern. Onset: Sudden Onset Date: 11/10/17 (Initially woke up with a bout of central chest pain for nights ago. This lasted a good half hour and then went away on its own. Suggest esophageal spasm versus cardiac etiology.) Onset Time: 04:00 Duration: Minutes: Location: Reports: Chest (Central chest with no radiation to neck or shoulders or back.) Quality: Reports: Ache, Pressure, Other Severity: Moderate (heaviness.) Improves with: Reports: Other (Went away spontaneously after about a half an hour.) Worsens with: Reports: None Context: Reports: Other (Chest pain awoke her from sleep.). Denies: Activity, Exercise, Lifting, Sick Contact, Trauma Associated Symptoms: Reports: Chest Pain (See ), Shortness of Breath. 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 (see below) (No recent changes to medications.) - Related Data Allergies Allergy/AdvReac Type Severity Reaction Status Date / Time No Known Allergies Allergy Verified 04/10/17 18:48 Home Meds: Home Meds Rivaroxaban [Xarelto] 10 mg PO DAILY 04/14/17 [History] Acetaminophen 325 mg PO DAILY PRN 11/13/17 [History] Ascorbic Acid [C-1000] 1,000 mg PO DAILY 11/13/17 [History] Benzonatate [Tessalon Perle] 100 mg PO TID PRN 11/13/17 [History] Cholecalciferol (Vitamin D3) [Vitamin D3] 1,000 unit PO DAILY 11/13/17 [History] Denosumab [Prolia] 60 mg SQ ASDIRECTED 11/13/17 [History] Estriol 1 gm VAG ASDIRECTED 11/13/17 [History] Ferrous Sulfate 325 mg PO DAILY 11/13/17 [History] Fluconazole [Diflucan] 150 mg PO ASDIRECTED 11/13/17 [History] Glucosamine/Msm/Chondroitin A [Triple Flex Caplet] 1 each PO DAILY 11/13/17 [ History] Multivitamins/Minerals [Vitamins and Minerals] 3 tab PO DAILY 11/13/17 [History] Nystatin 5 ml PO QID 11/13/17 [History] Hooper-3 Fatty Acids [Hooper-3] 1 tab PO DAILY 11/13/17 [History] Omeprazole Magnesium 20 mg PO DAILY 11/13/17 [History] Pravastatin Sodium [Pravastatin (Pravachol)] 20 mg PO DAILY 11/13/17 [History] Prednisone [IMW: Prednisone] 20 mg PO DAILY 11/13/17 [History] Past Medical History HEENT History: Reports: Impaired Vision Other HEENT History: wears glasses Cardiovascular History: Reports: Heart Murmur Respiratory History: Reports: Asthma Genitourinary History: Reports: None Neurological History: Reports: Other (See Below) (Currently is on prednisone 20 mg a day for temporal arteritis that was diagnosed in August last year. She is currently on a weaning dose of steroid. 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 - Past Surgical History Other GI Surgeries/Procedures: Current GI Bleed; Umbilical hernia repair Social & Family History - Family History Family Medical History: Noncontributory Cardiac: Reports: Hypertension Respiratory: Reports: Asthma, COPD - Tobacco Use Smoking Status *Q: Former Smoker Years of Tobacco use: 30 Used Tobacco, but Quit: Yes Month Tobacco Last Used: 10/1989 Second Hand Smoke Exposure: No - Caffeine Use Caffeine Use: Reports: Coffee Caffeine Use Comment: 3-5 cup of coffee/day - Alcohol Use Days Per Week of Alcohol Use: 0 (rare) - Recreational Drug Use Recreational Drug Use: No - Living Situation & Occupation Living situation: Reports: Occupation: Retired ED ROS GENERAL - Review of Systems Review Of Systems: See Below Constitutional: Reports: Malaise, Fatigue. Denies: Fever, Chills, Weakness, Diaphoresis, Decreased Appetite, Weight Loss HEENT: Reports: Glasses. Denies: Hearing Loss, Nosebleed, Nose Pain, Rhinitis, Sinus Problem, Throat Pain, Throat Swelling, Vertigo Respiratory: Reports: Shortness of Breath ([place] a little more short of breath than normal yesterday when going up a flight of stairs.). Denies: Wheezing ( Feels better today), Pleuritic Chest Pain, Cough, Sputum, Hemoptysis Cardiovascular: Reports: Chest Pain, Blood Pressure Problem (See history of present illness), Dyspnea on Exertion (Noted yesterday but has noted in the past since she's had multiple pulmonary emboli.). Denies: Claudication ( has mild chronic hypertension), Edema, Lightheadedness, Orthopnea, Palpitations Endocrine: Reports: No Symptoms GI/Abdominal: Reports: No Symptoms. Denies: Diarrhea, Decreased Appetite, Flatus, Hematemesis, Hematochezia, Melena, Stool Incontinence : Reports: Frequency, Incontinence Musculoskeletal: Reports: Joint Pain (Has a stress and urge component to incontinence. Knees hips low back and neck at times.) Skin: Reports: Bruising (Bruises easily because of being on Xarelto) Neurological: Reports: No Symptoms. Denies: Trouble Speaking, Difficulty Walking, Weakness, Change in Speech, Gait Disturbance Psychiatric: Reports: No Symptoms Hematologic/Lymphatic: Reports: No Symptoms Immunologic: Reports: No Symptoms ED EXAM, GENERAL - Physical Exam Exam: See Below Exam Limited By: No Limitations General Appearance: Alert, WD/WN, No Apparent Distress Eye Exam: Right Eye: Conjunctival Injection (Medial conjunctiva is erythematous she states is always like this.) Throat/Mouth: Normal Inspection, Normal Lips, Normal Oropharynx Head: Atraumatic, Normocephalic Neck: Normal Inspection, Supple, Non-Tender, Full Range of Motion. No: Carotid Bruit, Lymphadenopathy (L), Lymphadenopathy (R) Respiratory/Chest: No Respiratory Distress, Lungs Clear, Normal Breath Sounds, No Accessory Muscle Use. No: Rales, Rhonchi, Wheezing Cardiovascular: Normal Peripheral Pulses, Regular Rate, Rhythm, No Edema, No Gallop, No Murmur, No Rub Peripheral Pulses: 2+: Posterior Tibial (L), Posterior Tibial (R), Dorsalis Pedis (L), Dorsalis Pedis (R) GI/Abdominal: Normal Bowel Sounds, Soft, Non-Tender, No Organomegaly Back Exam: Normal Inspection, Full Range of Motion, Other. No: CVA Tenderness ( L), CVA Tenderness (R) Extremities: Normal Inspection (Mild kyphosis thoracic spine), Normal Range of Motion, Non-Tender, No Pedal Edema Neurological: Alert, Oriented, CN II-XII Intact, Normal Cognition Psychiatric: Normal Affect, Normal Mood Skin Exam: Warm, Dry, Intact, Pallor EKG INTERPRETATION EKG Date: 11/13/17 Time: 14:17 Rhythm: NSR Rate (Beats/Min): 68 [place]: LAD-Left [place] Deviation (Left axis deviation of -18) P-Wave: Present QRS: Other (Near Q-wave V1 with slow R-wave progression.) ST-T: Other (Diffuse early repolarization pattern noted mostly in the precordial leads.) QT: Normal EKG Interpretation Comments: Borderline ECG. Course - Vital Signs Last Recorded V/S: Last Vital Signs Temp 36.3 C 11/13/17 14:13 Pulse 67 11/13/17 15:50 Resp 18 11/13/17 15:50 BP 124/79 11/13/17 15:50 Pulse Ox 96 11/13/17 15:50 - Orders/Labs/Meds Orders: Active Orders 24 hr Category Date Time Status EKG Documentation Completion [RC] STAT Care 11/13/17 15:01 Active Labs: Laboratory Tests 11/13/17 11/13/17 11/13/17 Range/Units 14:20 14:20 14:20 WBC 8.23 (3.98-10.04) K/mm3 RBC 3.77 L (3.98-5.22) M/mm3 Hgb 11.6 (11.2-15.7) gm/L Hct 37.2 (34.1-44.9) % MCV 98.7 H (79.4-94.8) fl MCH 30.8 (25.6-32.2) pg MCHC 31.2 L (32.2-35.5) g/dl RDW Std Deviation 56.9 H (36.4-46.3) fL Plt Count 379 H (182-369) K/mm3 MPV 11.2 (9.4-12.3) fl Neutrophils % (Manual) 87 H (40-60) % Band Neutrophils % 0 (0-10) % Lymphocytes % (Manual) 12 L (20-40) % Atypical Lymphs % 0 % Monocytes % (Manual) 1 L (2-10) % Eosinophils % (Manual) 0 L (0.7-5.8) % Basophils % (Manual) 0 L (0.1-1.2) Platelet Estimate Adequate RBC Morph Comment Normal ESR (0-20) mm/hr PT 12.4 (8.0-13.0) SECONDS INR 1.13 Sodium 141 (136-145) mEq/L Potassium 4.0 (3.5-5.1) mEq/L Chloride 108 H (98-107) mEq/L Carbon Dioxide 23 (21-32) mEq/L Anion Gap 14.0 (5-15) BUN 18 (7-18) mg/dL Creatinine 0.8 (0.55-1.02) mg/dL Est Cr Clr Drug Dosing 38.94 mL/min Estimated GFR (MDRD) > 60 (>60) mL/min BUN/Creatinine Ratio 22.5 H (14-18) Glucose 130 H (83-115) mg/dL Calcium 9.3 (8.5-10.1) mg/dL Magnesium 2.2 (1.8-2.4) mg/dl Total Bilirubin 0.4 (0.2-1.0) mg/dL AST 30 (15-37) U/L ALT 35 (14-59) U/L Alkaline Phosphatase 38 L (46-116) U/L CK-MB (CK-2) 1.1 (0-3.6) ng/ml Troponin I < 0.017 (0.00-0.056) ng/mL C-Reactive Protein 0.3 (<1.0) mg/dL NT-Pro-B Natriuret Pep (0-450) pg/mL Total Protein 7.3 (6.4-8.2) g/dl Albumin 3.3 L (3.4-5.0) g/dl Globulin 4.0 gm/dL Albumin/Globulin Ratio 0.8 L (1-2) 11/13/17 11/13/17 Range/Units 14:20 14:20 WBC (3.98-10.04) K/mm3 RBC (3.98-5.22) M/mm3 Hgb (11.2-15.7) gm/L Hct (34.1-44.9) % MCV (79.4-94.8) fl MCH (25.6-32.2) pg MCHC (32.2-35.5) g/dl RDW Std Deviation (36.4-46.3) fL Plt Count (182-369) K/mm3 MPV (9.4-12.3) fl Neutrophils % (Manual) (40-60) % Band Neutrophils % (0-10) % Lymphocytes % (Manual) (20-40) % Atypical Lymphs % % Monocytes % (Manual) (2-10) % Eosinophils % (Manual) (0.7-5.8) % Basophils % (Manual) (0.1-1.2) Platelet Estimate RBC Morph Comment ESR 85 H (0-20) mm/hr PT (8.0-13.0) SECONDS INR Sodium (136-145) mEq/L Potassium (3.5-5.1) mEq/L Chloride (98-107) mEq/L Carbon Dioxide (21-32) mEq/L Anion Gap (5-15) BUN (7-18) mg/dL Creatinine (0.55-1.02) mg/dL Est Cr Clr Drug Dosing mL/min Estimated GFR (MDRD) (>60) mL/min BUN/Creatinine Ratio (14-18) Glucose (83-115) mg/dL Calcium (8.5-10.1) mg/dL Magnesium (1.8-2.4) mg/dl Total Bilirubin (0.2-1.0) mg/dL AST (15-37) U/L ALT (14-59) U/L Alkaline Phosphatase (46-116) U/L CK-MB (CK-2) (0-3.6) ng/ml Troponin I (0.00-0.056) ng/mL C-Reactive Protein (<1.0) mg/dL NT-Pro-B Natriuret Pep 62 (0-450) pg/mL Total Protein (6.4-8.2) g/dl Albumin (3.4-5.0) g/dl Globulin gm/dL Albumin/Globulin Ratio (1-2) - Radiology Interpretation Free Text/Narrative:: 82-year-old female presents to the ED with transient central chest pain for nights ago that awoke her from sleep. She presented to her practitioner today and ECG looked abnormal was suspicion of a old anteroseptal myocardial infarction. Therefore she was sent to the ED for further evaluation of transient chest pain and shortness of breath. On my examination she is feeling completely normal. Lungs are clear heart is sinus ECG does not show signs of acute myocardial infarction but does show delayed R-wave progression. She has a mild left axis deviation of -18. Routine labs and a chest x-ray will be obtained. - Re-Assessments/Exams Free Text/Narrative Re-Assessment/Exam: 11/13/17 15:14 portable chest x-ray one view suggest diffuse fine reticular pattern consistent with pulmonary fibrosis. There'll may also be a cyst slight component of vascular congestion. Cardiac silhouette is upper limits of normal in size. 11/13/17 15:42 Labs are back. White count is 8.23 with 87% neutrophils but no bands. Hemoglobin is 11.6 hematocrit is 37.2. MCV is 98.7. I.e. slightly high platelet count is 379,000. PT is 12.4 with an INR 1.13. Sodium 141 with potassium of 4.0. Chloride is 108 with a bicarbonate of 23. And a gap is 14.0. BUNs 18 with a creatinine of 0.8. GFR is greater than 60. Glucose is 1:30. Calcium is 9.3 magnesium normal at 2.2. Liver function is normal. Cardiac markers show CK-MB of 1.1 with a troponin I of less than 0.017. C-reactive protein is 0.3. BNP is 62 sedimentation rate is pending. 11/13/17 16:45: Her sedimentation rate came back elevated at 85. This would suggest that she needs an increased dose of prednisone to control her giant cell arteritis. Apparently sedimentation rate was done in the clinic yesterday and decision made to keep her on the current dose of prednisone 20 mg daily. I will leave further decisions up to her primary care provider. Departure - Departure Time of Disposition: 15:42 Disposition: Home, Self-Care 01 Condition: Fair Clinical Impression: Non-cardiac chest pain, Temporal giant cell arteritis Instructions: Nonspecific Chest Pain, [id number] Referrals: Taylor Ayala STOCK CONTROL CLERK [Primary Care Provider] - Forms: ED Department Discharge Additional Instructions: Evaluation in the emergency him today in regards to acute onset of chest pain that awoke him from sleep for nights ago. Also the ECG done at the [facility] today suggested an abnormality that you might of had a heart attack. You' re therefore sent to the ED for further evaluation. Evaluation by me reveals no abnormalities. Chest x-ray reveals some evidence of mild pulmonary fibrosis or scarring within the lung tissue. This may be from having multiple pulmonary emboli in the past. Heart tracing done here does not suggest any evidence of heart attack. Lab tests support this as well with normal cardiac enzymes. No sign of extra fluid within the lungs or body. Mild anemia with hemoglobin of 11.8. No other abnormalities were identified. Therefore the cause of your transient chest pain remains a bit of a mystery but it is usually GI in origin either from reflux of acid up into the food pipe causing spasm or hiatal hernia where the stomach likes to slip up into the chest through the opening in the diaphragm where the food pipe traverses. This can cause transient central chest pain as well and usually occurs during the night when we are sleeping when the effect of gravity is gone. Therefore at this time no changes to medications are recommended. Continue all activities as per your normal. - My Orders Last 24 Hours: My Active Orders 11/13/17 15:01 EKG Documentation Completion [RC] STAT - Assessment/Plan Last 24 Hours: My Active Orders 11/13/17 15:01 EKG Documentation Completion [RC] STAT
--- NOTE | 2017-11-13 15:50 | CR ---
Chest: Portable view of the chest was obtained. Comparison: Prior chest x-ray of 12/08/12. Heart size is normal. Tortuous thoracic aorta is seen. Lungs are clear with no acute parenchymal densities. Mild scoliosis noted within the spine. Bony structures are osteopenic. Impression: 1. Incidental findings. Nothing acute is seen on portable chest x-ray. Diagnostic code #2
[2017-11-13 16:04] VITALS: BP 124/79
== END 2017-11-13 16:00 | disposition home or self-care (01) ==
LOC: JD.ED 14:07
DX: R07.89 Other chest pain (principal); M31.6 Other giant cell arteritis; Z79.899 Other long term (current) drug therapy; Z87.891 Personal history of nicotine dependence; R06.02 Shortness of breath
CPT/HCPCS: 36415; 71045; 71045-26; 80053; 82553; 83735; 83880; 84484; 85025; 85610; 85652; 86140; 93005; 99284; 99285-25